=== PATIENT | female | born 1965 | race Hispanic/Latino ===

== ENCOUNTER 2017-07-15 20:36 | Emergency (ER) | payer OTHER ==
[2017-07-15] MEDS ORDERED: HYOSCYAMINE SULFATE 0.125 MG TAB.SUBL SL ONE (21:03)
[2017-07-15 21:11] LABS: APPEARANCE,URINE Clear (CLEAR); BILIRUBIN,URINE Negative (NEGATIVE); COLOR,URINE Yellow (YELLOW); GLUCOSE, URINE (UA) >=1000 mg/dL (NEGATIVE); KETONES,URINE Negative (NEGATIVE); LEUKOCYTE ESTERASE ,URINE Negative (NEGATIVE); NITRATE,URINE Negative (NEGATIVE); OCCULT BLOOD,URINE Negative (NEGATIVE); PROTEIN,URINE Negative (NEGATIVE); UROBILINOGEN,URINE 0.2 mg/dL (0.2-1.0)
[2017-07-15 21:17] LABS: RBC,URINE None Seen /HPF (0-1); WBC,URINE 0-1 /HPF (0-1)
[2017-07-15 21:18] LABS: BACTERIA,URINE Rare /HPF (None Seen); SQUAMOUS EPITHELIAL CELL,UR 0-2 /LPF (0-2)
== END 2017-07-15 22:07 | disposition home or self-care (01) ==
LOC: EDH 20:36
DX: R10.30 Lower abdominal pain, unspecified (principal); M79.1 Myalgia; I10 Essential (primary) hypertension; E11.9 Type 2 diabetes mellitus without complications; Z85.038 Personal history of other malignant neoplasm of large intestine; Z79.4 Long term (current) use of insulin
CPT/HCPCS: 81001

== ENCOUNTER 2019-06-18 17:50 | Emergency (ER) | payer OTHER ==
[2019-06-18] MEDS ORDERED: NA BORATE/BORIC AC/H2O/NACL 120 ML OPHTH IRRIG SOLN ONE (18:25)
[2019-06-18] MEDS ORDERED: TETRACAINE HCL 0.5% 4 ML OPHTH SOLN ONE (18:25)
[2019-06-18] MEDS ORDERED: FLUORESCEIN SODIUM 1 STRIP STRIP ONE (18:25)
[2019-06-18] MEDS ORDERED: ACETAMINOPHEN EXTRA STRENGTH 500 MG TABLET ONE (18:49)
== END 2019-06-18 19:34 | disposition home or self-care (01) ==
LOC: EDH 17:50
DX: S05.01XA Injury of conjunctiva and corneal abrasion without foreign body, right eye, initial encounter (principal); E11.9 Type 2 diabetes mellitus without complications; I10 Essential (primary) hypertension; Z88.6 Allergy status to analgesic agent; Z90.49 Acquired absence of other specified parts of digestive tract; X58.XXXA Exposure to other specified factors, initial encounter; Y93.89 Activity, other specified; Y92.89 Other specified places as the place of occurrence of the external cause; Y99.8 Other external cause status

== ENCOUNTER 2020-04-09 15:49 | Emergency (ER) | payer OTHER ==
[2020-04-09 16:13] LABS: BASOPHILS % (AUTO) 0.5 % (0.0-5.0); EOSINOPHILS % (AUTO) 0.7 % (0.0-8.0); HEMATOCRIT 34.9 % (36-48); LYMPHOCYTES % (AUTO) 23.9 % (21.0-51.0); MEAN CORPUSCULAR HEMOGLOBIN 30.4 pg (27.0-33.0); MEAN CORPUSCULAR HGB CONC 34.7 g/dL (32.0-36.0); MEAN CORPUSCULAR VOLUME 87.7 fL (79-99); MONOCYTES % (AUTO) 6.7 % (3.0-13.0); PLATELET COUNT (AUTO) 487 K/uL (130-400); RED BLOOD CELL COUNT(AUTO) 3.98 MIL/uL (4.00-5.50); RED CELL DISTRIBUTION WIDTH 11.8 % (11.0-15.5); WHITE BLOOD COUNT (AUTO) 8.3 K/uL (4.8-10.8)
[2020-04-09 16:15] LABS: APPEARANCE,URINE Cloudy (CLEAR); BILIRUBIN,URINE Negative (NEGATIVE); COLOR,URINE Yellow (YELLOW); GLUCOSE, URINE (UA) >=1000 mg/dL (NEGATIVE); KETONES,URINE Negative (NEGATIVE); LEUKOCYTE ESTERASE ,URINE Trace (NEGATIVE); NITRATE,URINE Negative (NEGATIVE); OCCULT BLOOD,URINE Negative (NEGATIVE); PROTEIN,URINE 300 mg/dL (NEGATIVE)
[2020-04-09 16:27] LABS: BACTERIA,URINE Many /HPF (None Seen); RBC,URINE None Seen /HPF (0-1)
[2020-04-09 16:31] LABS: ALBUMIN 3.2 g/dL (3.5-5.0); BILIRUBIN,TOTAL 0.3 mg/dL (0.2-1.0); CREATININE 1.1 mg/dL (0.5-1.5); POTASSIUM 4.6 mmol/L (3.5-5.1); TOTAL PROTEIN, SERUM 7.3 g/dL (6.0-8.3)
[2020-04-09] MEDS ORDERED: ONDANSETRON HCL 4 MG/2 ML VIAL ONE (16:46)
[2020-04-09] MEDS ORDERED: SODIUM CHLORIDE 0.9% 500ML 500 ML IV ONE (16:46)
[2020-04-09] MEDS ORDERED: INSULIN HUMULIN R 100 UNIT/ML 3ML ONE (17:54)
[2020-04-09] MEDS ORDERED: HYOSCYAMINE SULFATE 0.125 MG TAB.SUBL SL ONE (19:17)
[2020-04-09] MEDS ORDERED: DOCUSATE SODIUM 100 MG CAP PO ONE (19:17)
== END 2020-04-09 20:39 | disposition home or self-care (01) ==
LOC: EDH 15:49
DX: E11.65 Type 2 diabetes mellitus with hyperglycemia (principal); K59.00 Constipation, unspecified; I10 Essential (primary) hypertension; Z90.49 Acquired absence of other specified parts of digestive tract; Z88.5 Allergy status to narcotic agent
CPT/HCPCS: 36415; 71045; 74176; 80053; 81001; 82150; 82550; 82948; 83690; 84484; 85025; 87088; 93005; 96361; 96374; 96375; 99285; J1815; J2405; J7040

== ENCOUNTER 2021-02-28 20:05 | Emergency (ER) | payer OTHER ==
[~2021-02-28] VITALS: Ht 157.5 cm; Wt 46.3 kg
[2021-02-28 20:07] VITALS: BP 149/81
[2021-02-28 20:55] LABS: BASOPHILS % (AUTO) 0.3 % (0.0-5.0); EOSINOPHILS % (AUTO) 0.5 % (0.0-8.0); HEMATOCRIT 28.6 % (36-48); LYMPHOCYTES % (AUTO) 11.5 % (21.0-51.0); MEAN CORPUSCULAR HEMOGLOBIN 29.5 pg (27.0-33.0); MEAN CORPUSCULAR HGB CONC 32.9 g/dL (32.0-36.0); MEAN CORPUSCULAR VOLUME 89.7 fL (79-99); MONOCYTES % (AUTO) 9.6 % (3.0-13.0); NEUTROPHILS % (AUTO) 77.8 % (40.0-77.0); PLATELET COUNT (AUTO) 652 K/uL (130-400); RED BLOOD CELL COUNT(AUTO) 3.19 MIL/uL (4.00-5.50); RED CELL DISTRIBUTION WIDTH 12.5 % (11.0-15.5); WHITE BLOOD COUNT (AUTO) 9.2 K/uL (4.8-10.8)
[2021-02-28 21:10] LABS: CREATININE 1.1 mg/dL (0.5-1.5); POTASSIUM 4.2 mmol/L (3.5-5.1)
[2021-02-28 21:14] LABS: ALBUMIN 2.8 g/dL (3.5-5.0); BILIRUBIN,TOTAL 0.3 mg/dL (0.2-1.0); TOTAL PROTEIN, SERUM 7.1 g/dL (6.0-8.3)
== END 2021-03-01 02:20 | disposition home or self-care (01) ==
LOC: EDH 20:05
DX: R10.9 Unspecified abdominal pain (principal); R19.7 Diarrhea, unspecified; Z53.21 Procedure and treatment not carried out due to patient leaving prior to being seen by health care provider
CPT/HCPCS: 36415; 80053; 82150; 82550; 83690; 84484; 85025; 93005

== ENCOUNTER 2021-05-25 16:03 | Inpatient (IN) | payer SELFPAY ==
[~2021-05-25] VITALS: Ht 157.5 cm; Wt 48.1 kg
[2021-05-25 17:22] LABS: BASOPHILS % (AUTO) 0.8 % (0.0-5.0); EOSINOPHILS % (AUTO) 1.7 % (0.0-8.0); HEMATOCRIT 30.9 % (36-48); LYMPHOCYTES % (AUTO) 25.9 % (21.0-51.0); MEAN CORPUSCULAR HEMOGLOBIN 28.2 pg (27.0-33.0); MEAN CORPUSCULAR HGB CONC 31.7 g/dL (32.0-36.0); MONOCYTES % (AUTO) 6.5 % (3.0-13.0); NEUTROPHILS % (AUTO) 64.9 % (40.0-77.0); PLATELET COUNT (AUTO) 379 K/uL (130-400); RED BLOOD CELL COUNT(AUTO) 3.47 MIL/uL (4.00-5.50); RED CELL DISTRIBUTION WIDTH 13.2 % (11.0-15.5); WHITE BLOOD COUNT (AUTO) 5.2 K/uL (4.8-10.8)
[2021-05-25] MEDS ORDERED: NITROGLYCERIN 1GM OINT 1 INCH/1GM TD ONE (17:26)
[2021-05-25 17:28] LABS: PROTHROMBIN TIME 10.9 SEC (9.6-11.6)
[2021-05-25 17:29] LABS: PARTIAL THROMBOPLASTIN TIME 26.5 SEC (26.3-35.5)
[2021-05-25 17:30] LABS: CREATININE 1.2 mg/dL (0.5-1.5); POTASSIUM 4.5 mmol/L (3.5-5.1)
[2021-05-25] MEDS ORDERED: NITROGLYCERIN 1GM OINT 1 INCH/1GM TD SCH (17:30)
[2021-05-25 17:39] LABS: ALBUMIN 3.5 g/dL (3.5-5.0); BILIRUBIN,TOTAL 0.6 mg/dL (0.2-1.0); MAGNESIUM 2.4 mg/dL (1.80-2.40); TOTAL PROTEIN, SERUM 7.8 g/dL (6.0-8.3)
[2021-05-25 17:43] LABS: B-TYPE NATRIURETIC PEPTIDE 1110 pg/mL (0-100)
[2021-05-25 17:56] LABS: APPEARANCE,URINE Clear (CLEAR); BILIRUBIN,URINE Negative (NEGATIVE); COLOR,URINE Yellow (YELLOW); GLUCOSE, URINE (UA) >=1000 mg/dL (NEGATIVE); KETONES,URINE Negative (NEGATIVE); LEUKOCYTE ESTERASE ,URINE Negative (NEGATIVE); NITRATE,URINE Negative (NEGATIVE); OCCULT BLOOD,URINE Trace (NEGATIVE); PH,URINE 6.5 (5.0-8.0); PROTEIN,URINE 300 mg/dL (NEGATIVE)
[2021-05-25] MEDS ORDERED: FUROSEMIDE 40MG VIAL IV SCH (19:00)
[2021-05-25 19:26] LABS: BACTERIA,URINE Rare /HPF (None Seen); RBC,URINE 0-1 /HPF (0-1); SQUAMOUS EPITHELIAL CELL,UR Rare /HPF (0-2)
[2021-05-25] MEDS ORDERED: NITROGLYCERIN 0.4 MG SL TAB SL PRN (20:30)
[2021-05-25] MEDS ORDERED: LACTULOSE 20 GM/30 ML UDCUP PO PRN (20:30)
[2021-05-25] MEDS: NITROGLYCERIN 1GM OINT 1 INCH/1GM TD SCH (20:30)
[2021-05-25] MEDS ORDERED: ACETAMINOPHEN WITH CODEINE 1 TAB TAB PO PRN (20:30)
[2021-05-25] MEDS ORDERED: MORPHINE 4 MG SYG IV PRN (20:30)
[2021-05-25] MEDS ORDERED: ACETAMINOPHEN 325 MG TAB PO PRN (20:30)
[2021-05-25] MEDS ORDERED: MAG/ALUM/SIMETH 30 ML UDCUP PO PRN (20:30)
[2021-05-25] MEDS ORDERED: GUAIFENESIN-DM 200/20 MG 10 ML PO PRN (20:30)
[2021-05-25] MEDS: INSULIN HUMULIN R 100 UNIT/ML 3ML SQ SCH (21:00)
[2021-05-25 21:41] LABS: HEMOGLOBIN A1C 7.3 % (4.0-6.0)
[2021-05-25] MEDS: FUROSEMIDE 40MG VIAL IV SCH (21:45)
[2021-05-25] MEDS ORDERED: NITR0.4T SL (22:03)
[2021-05-25] MEDS ORDERED: AEC81 PO (22:03)
[2021-05-25] MEDS ORDERED: PANT40TA PO (22:03)
[2021-05-25] MEDS ORDERED: CLOP75TA14 PO (22:03)
[2021-05-25] MEDS ORDERED: LISI20TA24 PO (22:03)
[2021-05-25] MEDS ORDERED: ATOR80TA PO (22:03)
[2021-05-25] MEDS ORDERED: FURO20TA6 PO (22:03)
[2021-05-25] MEDS ORDERED: METF-526 PO (22:03)
[2021-05-25] MEDS ORDERED: TICA90TA PO (22:03)
[2021-05-25] MEDS ORDERED: INVOK100TB PO (22:03)
[2021-05-25] MEDS ORDERED: FERR325T29 PO (22:03)
[2021-05-25] MEDS ORDERED: METO100T14 PO (22:03)
[2021-05-25] MEDS: FAMOTIDINE 20MG VIAL IV SCH (22:10)
[2021-05-25] MEDS ORDERED: KETOROLAC 15MG/ML VIAL (15MG/ML) IV ONE (22:30)
[2021-05-25] MEDS ORDERED: LABETALOL 20MG VIAL IV ONE (22:30)
[2021-05-26] MEDS: NITROGLYCERIN 1GM OINT 1 INCH/1GM TD SCH ×4 (05:43→23:04)
[2021-05-26 06:58] LABS: CREATININE 1.2 mg/dL (0.5-1.5); POTASSIUM 3.9 mmol/L (3.5-5.1)
[2021-05-26] MEDS: INSULIN HUMULIN R 100 UNIT/ML 3ML SQ SCH ×4 (07:30→21:00)
[2021-05-26] MEDS: FUROSEMIDE 40MG VIAL IV SCH ×2 (09:24→21:03)
[2021-05-26] MEDS: LISINOPRIL 10 MG TABLET PO SCH (09:24)
[2021-05-26] MEDS: FAMOTIDINE 20MG VIAL IV SCH (09:24)
[2021-05-26] MEDS: METOPROLOL TARTRATE 50 MG TAB PO SCH ×2 (09:24→21:03)
[2021-05-26] MEDS: ASPIRIN 81 MG EC TAB PO SCH (09:24)
[2021-05-26 09:25] LABS: BASOPHILS % (AUTO) 0.9 % (0.0-5.0); EOSINOPHILS % (AUTO) 2.2 % (0.0-8.0); HEMATOCRIT 26.5 % (36-48); LYMPHOCYTES % (AUTO) 30.9 % (21.0-51.0); MEAN CORPUSCULAR HEMOGLOBIN 28.2 pg (27.0-33.0); MEAN CORPUSCULAR HGB CONC 31.7 g/dL (32.0-36.0); MEAN CORPUSCULAR VOLUME 88.9 fL (79-99); MONOCYTES % (AUTO) 7.3 % (3.0-13.0); NEUTROPHILS % (AUTO) 58.3 % (40.0-77.0); PLATELET COUNT (AUTO) 356 K/uL (130-400); RED BLOOD CELL COUNT(AUTO) 2.98 MIL/uL (4.00-5.50); RED CELL DISTRIBUTION WIDTH 13.1 % (11.0-15.5); WHITE BLOOD COUNT (AUTO) 4.6 K/uL (4.8-10.8)
[2021-05-26] MEDS: ENOXAPARIN SODIUM 30 MG/0.3 ML SQ SCH (09:25)
[2021-05-26 09:50] LABS: B-TYPE NATRIURETIC PEPTIDE 1020 pg/mL (0-100)
[2021-05-26 20:30] VITALS: BP 155/94
[2021-05-26] MEDS: ATORVASTATIN 20 MG TABLET PO SCH (21:03)
[2021-05-27] VITALS: BP 159/97
[2021-05-27 04:00] VITALS: BP 139/65
[2021-05-27 04:49] LABS: BASOPHILS % (AUTO) 0.6 % (0.0-5.0); EOSINOPHILS % (AUTO) 3.2 % (0.0-8.0); HEMATOCRIT 25.1 % (36-48); LYMPHOCYTES % (AUTO) 28.3 % (21.0-51.0); MEAN CORPUSCULAR HEMOGLOBIN 28.4 pg (27.0-33.0); MEAN CORPUSCULAR HGB CONC 32.3 g/dL (32.0-36.0); MEAN CORPUSCULAR VOLUME 88.1 fL (79-99); MONOCYTES % (AUTO) 8.6 % (3.0-13.0); NEUTROPHILS % (AUTO) 59.1 % (40.0-77.0); PLATELET COUNT (AUTO) 337 K/uL (130-400); RED BLOOD CELL COUNT(AUTO) 2.85 MIL/uL (4.00-5.50); WHITE BLOOD COUNT (AUTO) 5.4 K/uL (4.8-10.8)
[2021-05-27 05:08] LABS: BILIRUBIN,TOTAL 0.5 mg/dL (0.2-1.0); CREATININE 1.3 mg/dL (0.5-1.5); TOTAL PROTEIN, SERUM 6.6 g/dL (6.0-8.3)
[2021-05-27] MEDS: INSULIN HUMULIN R 100 UNIT/ML 3ML SQ SCH ×4 (05:47→20:42)
[2021-05-27] MEDS: NITROGLYCERIN 1GM OINT 1 INCH/1GM TD SCH ×3 (06:13→22:36)
[2021-05-27 07:35] VITALS: BP 163/94
[2021-05-27] MEDS: FUROSEMIDE 40MG VIAL IV SCH ×2 (09:11→20:34)
[2021-05-27] MEDS: ASPIRIN 81 MG EC TAB PO SCH (09:11)
[2021-05-27] MEDS: LISINOPRIL 10 MG TABLET PO SCH ×2 (09:11→20:34)
[2021-05-27] MEDS: ENOXAPARIN SODIUM 30 MG/0.3 ML SQ SCH (09:11)
[2021-05-27] MEDS: METOPROLOL TARTRATE 50 MG TAB PO SCH (09:11)
[2021-05-27] MEDS: FAMOTIDINE 20MG VIAL IV SCH (09:12)
[2021-05-27 11:30] VITALS: BP 134/55
[2021-05-27] MEDS ORDERED: DiphenhydrAMINE HCL 50 MG/ML VIAL IVP PRN (14:00)
[2021-05-27 15:30] VITALS: BP 157/86
[2021-05-27 20:00] VITALS: BP 159/90
[2021-05-27] MEDS: CARVEDILOL 25 MG TABLET PO SCH (20:34)
[2021-05-27] MEDS: ATORVASTATIN 20 MG TABLET PO SCH (20:34)
[2021-05-27] MEDS: ACETAMINOPHEN 325 MG TAB PO PRN (22:37)
[2021-05-27] MEDS: ACETAMINOPHEN WITH CODEINE 1 TAB TAB PO PRN (23:31)
[2021-05-28] VITALS: BP 154/74
[2021-05-28 03:53] VITALS: BP 102/50
[2021-05-28 05:20] LABS: HEMATOCRIT 25.3 % (36-48); MEAN CORPUSCULAR HEMOGLOBIN 28.5 pg (27.0-33.0); MEAN CORPUSCULAR HGB CONC 32.8 g/dL (32.0-36.0); MEAN CORPUSCULAR VOLUME 86.9 fL (79-99); RED BLOOD CELL COUNT(AUTO) 2.91 MIL/uL (4.00-5.50); WHITE BLOOD COUNT (AUTO) 4.7 K/uL (4.8-10.8)
[2021-05-28 05:39] LABS: CREATININE 1.5 mg/dL (0.5-1.5); POTASSIUM 4.1 mmol/L (3.5-5.1)
[2021-05-28] MEDS: NITROGLYCERIN 1GM OINT 1 INCH/1GM TD SCH ×2 (06:22→16:28)
[2021-05-28] MEDS: INSULIN HUMULIN R 100 UNIT/ML 3ML SQ SCH ×4 (06:22→21:00)
[2021-05-28] MEDS: ONDANSETRON 4MG INJ IV PRN ×2 (09:12→17:36)
[2021-05-28] MEDS: LISINOPRIL 10 MG TABLET PO SCH ×2 (09:16→21:51)
[2021-05-28] MEDS: ASPIRIN 81 MG EC TAB PO SCH (09:16)
[2021-05-28] MEDS: FAMOTIDINE 20MG VIAL IV SCH (09:16)
[2021-05-28] MEDS: CARVEDILOL 25 MG TABLET PO SCH ×2 (09:17→21:51)
[2021-05-28] MEDS: ENOXAPARIN SODIUM 30 MG/0.3 ML SQ SCH (09:17)
[2021-05-28] MEDS: FUROSEMIDE 40MG VIAL IV SCH (09:17)
[2021-05-28 09:28] VITALS: BP 170/96
[2021-05-28 11:55] VITALS: BP 162/94
[2021-05-28 16:52] VITALS: BP 159/86
[2021-05-28] MEDS: MECLIZINE HCL 12.5 MG TABLET PO PRN (19:25)
[2021-05-28 20:00] VITALS: BP 136/74
[2021-05-28] MEDS: ATORVASTATIN 20 MG TABLET PO SCH (21:52)
[2021-05-29] VITALS (7 sets, daily range): BP systolic 116–139; BP diastolic 49–73
[2021-05-29 05:40] LABS: HEMATOCRIT 26.8 % (36-48); MEAN CORPUSCULAR HEMOGLOBIN 28.5 pg (27.0-33.0); MEAN CORPUSCULAR HGB CONC 32.1 g/dL (32.0-36.0); MEAN CORPUSCULAR VOLUME 88.7 fL (79-99); RED BLOOD CELL COUNT(AUTO) 3.02 MIL/uL (4.00-5.50); RED CELL DISTRIBUTION WIDTH 12.8 % (11.0-15.5); WHITE BLOOD COUNT (AUTO) 5.4 K/uL (4.8-10.8)
[2021-05-29 05:52] LABS: CREATININE 1.3 mg/dL (0.5-1.5); POTASSIUM 4.1 mmol/L (3.5-5.1)
[2021-05-29 06:00] LABS: INR 1.01 (0.85-1.15)
[2021-05-29 06:02] LABS: PARTIAL THROMBOPLASTIN TIME 26.7 SEC (26.3-35.5)
[2021-05-29] MEDS: INSULIN HUMULIN R 100 UNIT/ML 3ML SQ SCH ×3 (06:42→20:19)
[2021-05-29] MEDS: NITROGLYCERIN 1GM OINT 1 INCH/1GM TD SCH ×2 (07:38→15:22)
[2021-05-29] MEDS: FUROSEMIDE 40MG VIAL IV SCH (10:09)
[2021-05-29] MEDS: CARVEDILOL 25 MG TABLET PO SCH ×2 (10:09→20:18)
[2021-05-29] MEDS: FAMOTIDINE 20MG VIAL IV SCH (10:09)
[2021-05-29] MEDS: LISINOPRIL 10 MG TABLET PO SCH ×2 (10:09→20:19)
[2021-05-29] MEDS: ASPIRIN 81 MG EC TAB PO SCH (10:09)
[2021-05-29] MEDS: ENOXAPARIN SODIUM 30 MG/0.3 ML SQ SCH (10:10)
[2021-05-29] MEDS: MECLIZINE HCL 12.5 MG TABLET PO PRN (12:49)
[2021-05-29] MEDS: ATORVASTATIN 20 MG TABLET PO SCH (20:19)
[2021-05-30] VITALS (12 sets, daily range): BP systolic 119–160; BP diastolic 41–82
[2021-05-30] MEDS: NITROGLYCERIN 1GM OINT 1 INCH/1GM TD SCH ×3 (00:01→15:45)
[2021-05-30 05:04] LABS: MEAN CORPUSCULAR HGB CONC 32.1 g/dL (32.0-36.0); RED BLOOD CELL COUNT(AUTO) 3.22 MIL/uL (4.00-5.50); RED CELL DISTRIBUTION WIDTH 12.6 % (11.0-15.5); WHITE BLOOD COUNT (AUTO) 5.1 K/uL (4.8-10.8)
[2021-05-30 05:18] LABS: CREATININE 1.4 mg/dL (0.5-1.5); POTASSIUM 3.9 mmol/L (3.5-5.1)
[2021-05-30 05:21] LABS: INR 1.01 (0.85-1.15)
[2021-05-30 05:22] LABS: PARTIAL THROMBOPLASTIN TIME 27.6 SEC (26.3-35.5)
[2021-05-30] MEDS: INSULIN HUMULIN R 100 UNIT/ML 3ML SQ SCH ×4 (05:44→21:45)
[2021-05-30] MEDS ORDERED: BIVALIRUDIN 250 MG/VIAL IV ONE (07:13)
[2021-05-30] MEDS ORDERED: HEPARIN 10,000 UNIT/10ML (1,000 UNIT/ML) VIAL ONE (07:14)
[2021-05-30] MEDS ORDERED: IOHEXOL 350 MG/ML 100ML INFUS..BTL IV ONE (07:14)
[2021-05-30] MEDS ORDERED: NITROGLYCERIN 50MG VIAL IV ONE (07:14)
[2021-05-30] MEDS ORDERED: LIDOCAINE HCL 400MG/20ML VIAL ONE (07:14)
[2021-05-30] MEDS ORDERED: IOHEXOL-350 50ML VIAL IV ONE (07:14)
[2021-05-30] MEDS ORDERED: FENTANYL CITRATE PF 50 MCG/1 ML 2ML VIAL ONE (07:41)
[2021-05-30] MEDS ORDERED: MIDAZOLAM HCL 1 MG/ML 2ML VIAL ONE (07:41)
[2021-05-30] MEDS ORDERED: HEPARIN 1,000 UNIT VIAL ONE (07:56)
[2021-05-30] MEDS: SPIRONOLACTONE 25 MG TAB PO SCH (09:00)
[2021-05-30] MEDS: ASPIRIN 81 MG EC TAB PO SCH (09:00)
[2021-05-30] MEDS: FUROSEMIDE 40MG VIAL IV SCH (09:00)
[2021-05-30] MEDS: FAMOTIDINE 20MG VIAL IV SCH (09:00)
[2021-05-30] MEDS: LISINOPRIL 10 MG TABLET PO SCH ×3 (09:00→21:31)
[2021-05-30] MEDS: CARVEDILOL 25 MG TABLET PO SCH ×3 (09:00→21:32)
[2021-05-30] MEDS: ATORVASTATIN 20 MG TABLET PO SCH ×2 (21:21→21:31)
[2021-05-31] MEDS: NITROGLYCERIN 1GM OINT 1 INCH/1GM TD SCH ×3 (01:33→14:32)
[2021-05-31] MEDS: ACETAMINOPHEN WITH CODEINE 1 TAB TAB PO PRN (01:40)
[2021-05-31] MEDS: ACETAMINOPHEN 325 MG TAB PO PRN (01:44)
[2021-05-31 04:00] VITALS: BP 111/58
[2021-05-31 05:26] LABS: HEMATOCRIT 27.7 % (36-48); MEAN CORPUSCULAR HEMOGLOBIN 27.8 pg (27.0-33.0); MEAN CORPUSCULAR HGB CONC 31.8 g/dL (32.0-36.0); MEAN CORPUSCULAR VOLUME 87.7 fL (79-99); RED BLOOD CELL COUNT(AUTO) 3.16 MIL/uL (4.00-5.50); RED CELL DISTRIBUTION WIDTH 12.6 % (11.0-15.5); WHITE BLOOD COUNT (AUTO) 5.7 K/uL (4.8-10.8)
[2021-05-31 05:40] LABS: CREATININE 1.5 mg/dL (0.5-1.5); POTASSIUM 4.3 mmol/L (3.5-5.1)
[2021-05-31] MEDS: INSULIN HUMULIN R 100 UNIT/ML 3ML SQ SCH ×3 (06:29→16:10)
[2021-05-31 07:30] VITALS: BP 135/69
[2021-05-31] MEDS: CARVEDILOL 25 MG TABLET PO SCH (08:55)
[2021-05-31] MEDS: ASPIRIN 81 MG EC TAB PO SCH (08:55)
[2021-05-31] MEDS: SPIRONOLACTONE 25 MG TAB PO SCH (08:55)
[2021-05-31] MEDS: LISINOPRIL 10 MG TABLET PO SCH (08:55)
[2021-05-31] MEDS: FUROSEMIDE 40MG VIAL IV SCH (08:56)
[2021-05-31] MEDS: FAMOTIDINE 20MG VIAL IV SCH (08:56)
[2021-05-31 11:00] VITALS: BP 125/67
[2021-05-31 16:00] VITALS: BP 131/74
[2021-05-31] MEDS ORDERED: LISI10TA24 PO (16:26)
[2021-05-31] MEDS ORDERED: FURO40TA7 PO (16:26)
[2021-05-31] MEDS ORDERED: SPIR25TA6 PO (16:26)
[2021-05-31] MEDS ORDERED: CARV25TA77 PO (16:26)
== END 2021-05-31 17:31 | disposition home or self-care (01) | DRG 286 ==
LOC: EDH 16:03 → EDHIP 16:04 → UNDOADMIN 21:41 → 3DH 05-26 20:29
PROVIDERS: ADMIT Hospitalist; ATTEND Hospitalist
PROC: 4A023N7 Measurement of Cardiac Sampling and Pressure, Left Heart, Percutaneous Approach (ICD-10-PCS; principal; 2021-05-30)
PROC: B2111ZZ Fluoroscopy of Multiple Coronary Arteries using Low Osmolar Contrast (ICD-10-PCS; 2021-05-30)
PROC: B2151ZZ Fluoroscopy of Left Heart using Low Osmolar Contrast (ICD-10-PCS; 2021-05-30)
DX: I11.0 Hypertensive heart disease with heart failure (principal); I50.43 Acute on chronic combined systolic (congestive) and diastolic (congestive) heart failure; E78.5 Hyperlipidemia, unspecified; E11.9 Type 2 diabetes mellitus without complications; I25.10 Atherosclerotic heart disease of native coronary artery without angina pectoris; Z20.822 Contact with and (suspected) exposure to COVID-19; E78.00 Pure hypercholesterolemia, unspecified; I25.82 Chronic total occlusion of coronary artery; I25.2 Old myocardial infarction; Z88.5 Allergy status to narcotic agent; Z95.5 Presence of coronary angioplasty implant and graft; Z85.038 Personal history of other malignant neoplasm of large intestine; Z83.3 Family history of diabetes mellitus; Z82.49 Family history of ischemic heart disease and other diseases of the circulatory system
CPT/HCPCS: 36415; 71045; 71046; 78582; 80048; 80053; 80061; 81001; 82550; 82948; 83036; 83605; 83735; 83880; 84484; 85025; 85027; 85378; 85610; 85730; 87040; 87635; 93005; 93306; 93458; 93971; 99156; 99157; A9540; A9558; C1894; C9803; G0378; J0583; J1200; J1644; J1650; J1815; J1885; J1940; J2250; J2405; J3010; J3490; Q9967

== ENCOUNTER 2021-06-10 23:41 | Inpatient (IN) | payer SELFPAY ==
[~2021-06-10] VITALS: Ht 157.5 cm; Wt 54.0 kg
[~2021-06-10 23:41] MED LIST: AEC81 PO; ATOR80TA PO; CARV25TA77 PO; FERR325T29 PO; FURO40TA7 PO; INVOK100TB PO; LISI10TA24 PO; METF-526 PO; NITR0.4T SL; PANT40TA PO; SPIR25TA6 PO; TICA90TA PO
[2021-06-11] MEDS ORDERED: FUROSEMIDE 40MG VIAL IV ONE (00:30)
[2021-06-11] MEDS ORDERED: NITROGLYCERIN 1GM OINT 1 INCH/1GM TD ONE ×2 (00:30→00:42)
[2021-06-11] MEDS ORDERED: FUROSEMIDE 40MG VIAL ONE (00:42)
[2021-06-11 00:48] LABS: APPEARANCE,URINE Clear (CLEAR); BILIRUBIN,URINE Negative (NEGATIVE); COLOR,URINE Yellow (YELLOW); GLUCOSE, URINE (UA) >=1000 mg/dL (NEGATIVE); KETONES,URINE Negative (NEGATIVE); LEUKOCYTE ESTERASE ,URINE Trace (NEGATIVE); NITRATE,URINE Negative (NEGATIVE); OCCULT BLOOD,URINE Trace (NEGATIVE); PH,URINE 5.5 (5.0-8.0); PROTEIN,URINE >=1000 mg/dL (NEGATIVE)
[2021-06-11 00:56] LABS: BACTERIA,URINE None Seen /HPF (None Seen); HYALINE CASTS, URINE 0-1 /LPF (0-1 /LPF); MUCUS,URINE Rare LPF (None Seen); RBC,URINE 0-1 /HPF (0-1); SQUAMOUS EPITHELIAL CELL,UR Few /HPF (0-2); YEAST,URINE BUDDING None Seen /HPF (None Seen)
[2021-06-11 00:57] LABS: POTASSIUM 5.2 mmol/L (3.5-5.1)
[2021-06-11 01:01] LABS: ALBUMIN 3.4 g/dL (3.5-5.0); BILIRUBIN,TOTAL 0.5 mg/dL (0.2-1.0); TOTAL PROTEIN, SERUM 7.5 g/dL (6.0-8.3)
[2021-06-11 01:04] LABS: BASOPHILS % (AUTO) 1.1 % (0.0-5.0); HEMATOCRIT 26.3 % (36-48); LYMPHOCYTES % (AUTO) 25.2 % (21.0-51.0); MEAN CORPUSCULAR HEMOGLOBIN 27.8 pg (27.0-33.0); MEAN CORPUSCULAR HGB CONC 32.7 g/dL (32.0-36.0); MEAN CORPUSCULAR VOLUME 85.1 fL (79-99); MONOCYTES % (AUTO) 7.3 % (3.0-13.0); NEUTROPHILS % (AUTO) 64.2 % (40.0-77.0); PLATELET COUNT (AUTO) 432 K/uL (130-400); RED BLOOD CELL COUNT(AUTO) 3.09 MIL/uL (4.00-5.50); RED CELL DISTRIBUTION WIDTH 12.9 % (11.0-15.5); WHITE BLOOD COUNT (AUTO) 5.5 K/uL (4.8-10.8)
[2021-06-11 01:05] LABS: B-TYPE NATRIURETIC PEPTIDE 1020 pg/mL (0-100)
[2021-06-11] MEDS ORDERED: DEXTROSE 50%-WATER 50 ML DISP.SYRIN IV PRN (02:30)
[2021-06-11] MEDS ORDERED: NITROGLYCERIN 0.4 MG SL TAB SL PRN (02:30)
[2021-06-11] MEDS ORDERED: GLUCAGON 1MG KIT 1 MG ML IM PRN (02:30)
[2021-06-11] MEDS ORDERED: ACETAMINOPHEN 325 MG TAB PO PRN ×2 (02:30)
[2021-06-11 02:37] LABS: HEMOGLOBIN A1C 7.8 % (4.0-6.0)
[2021-06-11 02:52] LABS: % IRON SATURATION 17.1 % (22-44)
[2021-06-11 03:10] LABS: INR 1.01 (0.85-1.15)
[2021-06-11 03:11] LABS: PARTIAL THROMBOPLASTIN TIME 26.7 SEC (26.3-35.5)
[2021-06-11 03:14] LABS: POTASSIUM 4.1 mmol/L (3.5-5.1)
[2021-06-11] MEDS: INSULIN HUMULIN R 100 UNIT/ML 3ML SQ SCH ×4 (07:30→21:00)
[2021-06-11] MEDS ORDERED: FUROSEMIDE 40MG VIAL IVP SCH (08:00)
[2021-06-11] MEDS: ATORVASTATIN 40 MG TABLET PO SCH ×2 (09:00→21:24)
[2021-06-11] MEDS ORDERED: COMPOUND IV MISC 1 EACH IVSOLN MISC PRN (09:00)
[2021-06-11] MEDS: CARVEDILOL 25 MG TABLET PO SCH ×2 (09:29→21:24)
[2021-06-11] MEDS: SPIRONOLACTONE 25 MG TAB PO SCH (09:29)
[2021-06-11] MEDS: FAMOTIDINE 20MG TAB PO SCH ×2 (09:29→21:24)
[2021-06-11] MEDS: TICAGRELOR 90 MG TABLET PO SCH ×2 (09:29→21:24)
[2021-06-11] MEDS: ASPIRIN 81 MG EC TAB PO SCH (09:29)
[2021-06-11] MEDS: NON-FORMULARY MEDICATION 1 EACH (Metformin HCl (Metformin HCl ER) 500 MG) PO SCH ×2 (09:29→16:19)
[2021-06-11] MEDS: FERROUS SULFATE 325 MG TABLET.DR PO SCH (09:29)
[2021-06-11] MEDS: LISINOPRIL 10 MG TABLET PO SCH (09:30)
[2021-06-11] MEDS: ENOXAPARIN SODIUM 30 MG/0.3 ML SQ SCH (09:30)
[2021-06-11] MEDS: IRON SUCROSE COMPLEX 300 MG in 0.9%NACL 50ML 50 ML IV SCH (10:15)
[2021-06-11] MEDS: FUROSEMIDE 40MG VIAL IVP SCH ×2 (13:57→22:45)
[2021-06-11] MEDS: ONDANSETRON 4MG INJ IV PRN (14:02)
[2021-06-11] MEDS ORDERED: NOREPINEPHRIN 4MG/NS 250ML 0 ML IV ONE (21:06)
[2021-06-12] VITALS (7 sets, daily range): BP systolic 114–165; BP diastolic 60–96
[2021-06-12 06:19] LABS: BASOPHILS % (AUTO) 0.8 % (0.0-5.0); EOSINOPHILS % (AUTO) 2.1 % (0.0-8.0); HEMATOCRIT 26.8 % (36-48); LYMPHOCYTES % (AUTO) 27.4 % (21.0-51.0); MEAN CORPUSCULAR HGB CONC 31.7 g/dL (32.0-36.0); MEAN CORPUSCULAR VOLUME 88.2 fL (79-99); MONOCYTES % (AUTO) 8.4 % (3.0-13.0); NEUTROPHILS % (AUTO) 61.1 % (40.0-77.0); PLATELET COUNT (AUTO) 378 K/uL (130-400); RED BLOOD CELL COUNT(AUTO) 3.04 MIL/uL (4.00-5.50); WHITE BLOOD COUNT (AUTO) 5.3 K/uL (4.8-10.8)
[2021-06-12] MEDS: INSULIN HUMULIN R 100 UNIT/ML 3ML SQ SCH ×4 (06:37→21:42)
[2021-06-12 07:14] LABS: BILIRUBIN,TOTAL 0.5 mg/dL (0.2-1.0); CREATININE 1.4 mg/dL (0.5-1.5); POTASSIUM 3.9 mmol/L (3.5-5.1); TOTAL PROTEIN, SERUM 6.7 g/dL (6.0-8.3)
[2021-06-12] MEDS: FUROSEMIDE 40MG VIAL IVP SCH ×2 (07:56→17:39)
[2021-06-12] MEDS: NON-FORMULARY MEDICATION 1 EACH (Metformin HCl (Metformin HCl ER) 500 MG) PO SCH ×2 (08:00→17:00)
[2021-06-12] MEDS: FAMOTIDINE 20MG TAB PO SCH (09:50)
[2021-06-12] MEDS: TICAGRELOR 90 MG TABLET PO SCH ×2 (09:50→21:29)
[2021-06-12] MEDS: ENOXAPARIN SODIUM 30 MG/0.3 ML SQ SCH (09:50)
[2021-06-12] MEDS: SPIRONOLACTONE 25 MG TAB PO SCH (09:51)
[2021-06-12] MEDS: LISINOPRIL 10 MG TABLET PO SCH (09:51)
[2021-06-12] MEDS: ASPIRIN 81 MG EC TAB PO SCH (09:51)
[2021-06-12] MEDS: CARVEDILOL 25 MG TABLET PO SCH ×2 (09:51→21:29)
[2021-06-12] MEDS: IRON SUCROSE COMPLEX 300 MG in 0.9%NACL 50ML 50 ML IV SCH (09:58)
[2021-06-12] MEDS: ONDANSETRON 4MG INJ IV PRN ×2 (12:48→23:45)
[2021-06-12] MEDS ORDERED: PANTOPRAZOLE 40 MG TAB DR PO SCH (14:00)
[2021-06-12] MEDS ORDERED: PHARMACY COMMUNICATION MISC SCH (14:00)
[2021-06-12] MEDS ORDERED: GI COCKTAIL PO PRN ×3 (14:30)
[2021-06-12] MEDS ORDERED: COMPOUND PO MISCELLANEOUS 1 EACH MISC MISC PRN (14:30)
[2021-06-12] MEDS ORDERED: POLYETHYLENE GLYCOL 3350 17 GM POWD.PACK PO ONE (18:00)
[2021-06-12] MEDS ORDERED: LACTULOSE 20 GM/30 ML UDCUP PO ONE (18:00)
[2021-06-12] MEDS ORDERED: DOCUSATE SODIUM 100 MG CAP PO SCH (18:00)
[2021-06-12] MEDS: ATORVASTATIN 40 MG TABLET PO SCH (21:28)
[2021-06-13 03:49] VITALS: BP 139/77
[2021-06-13] MEDS: FUROSEMIDE 40MG VIAL IVP SCH (05:42)
[2021-06-13] MEDS: INSULIN HUMULIN R 100 UNIT/ML 3ML SQ SCH ×3 (05:50→16:30)
[2021-06-13 07:30] VITALS: BP 133/70
[2021-06-13] MEDS: NON-FORMULARY MEDICATION 1 EACH (Metformin HCl (Metformin HCl ER) 500 MG) PO SCH ×2 (08:00→17:00)
[2021-06-13] MEDS: ASPIRIN 81 MG EC TAB PO SCH (08:59)
[2021-06-13] MEDS: SPIRONOLACTONE 25 MG TAB PO SCH (08:59)
[2021-06-13] MEDS: LISINOPRIL 10 MG TABLET PO SCH (08:59)
[2021-06-13] MEDS: FERROUS SULFATE 325 MG TABLET.DR PO SCH (08:59)
[2021-06-13] MEDS: TICAGRELOR 90 MG TABLET PO SCH (09:00)
[2021-06-13] MEDS: CARVEDILOL 25 MG TABLET PO SCH (09:00)
[2021-06-13] MEDS ORDERED: PANTOPRAZOLE 40 MG TAB DR PO SCH (09:00)
[2021-06-13] MEDS: ENOXAPARIN SODIUM 30 MG/0.3 ML SQ SCH (09:01)
[2021-06-13] MEDS: IRON SUCROSE COMPLEX 300 MG in 0.9%NACL 50ML 50 ML IV SCH (10:15)
[2021-06-13] MEDS: ONDANSETRON 4MG INJ IV PRN (10:15)
[2021-06-13 11:00] VITALS: BP 165/78
[2021-06-13 12:24] LABS: BASOPHILS % (AUTO) 0.7 % (0.0-5.0); EOSINOPHILS % (AUTO) 11.2 % (0.0-8.0); HEMATOCRIT 29.4 % (36-48); LYMPHOCYTES % (AUTO) 17.4 % (21.0-51.0); MEAN CORPUSCULAR HEMOGLOBIN 28.5 pg (27.0-33.0); MEAN CORPUSCULAR HGB CONC 32.7 g/dL (32.0-36.0); MEAN CORPUSCULAR VOLUME 87.2 fL (79-99); MONOCYTES % (AUTO) 6.3 % (3.0-13.0); PLATELET COUNT (AUTO) 391 K/uL (130-400); RED BLOOD CELL COUNT(AUTO) 3.37 MIL/uL (4.00-5.50); RED CELL DISTRIBUTION WIDTH 12.8 % (11.0-15.5); WHITE BLOOD COUNT (AUTO) 5.7 K/uL (4.8-10.8)
[2021-06-13 12:43] LABS: B-TYPE NATRIURETIC PEPTIDE 755 pg/mL (0-100)
[2021-06-13 12:45] LABS: ALBUMIN 3.5 g/dL (3.5-5.0); BILIRUBIN,TOTAL 0.7 mg/dL (0.2-1.0); CREATININE 1.7 mg/dL (0.5-1.5); MAGNESIUM 1.9 mg/dL (1.80-2.40); PHOSPHORUS 4.6 mg/dL (2.5-4.9); POTASSIUM 4.3 mmol/L (3.5-5.1); TOTAL PROTEIN, SERUM 7.7 g/dL (6.0-8.3)
[2021-06-13 16:00] VITALS: BP 145/86
[2021-06-13] MEDS ORDERED: AEC81 PO (19:44)
[2021-06-13] MEDS ORDERED: CARV25TA77 PO (19:44)
[2021-06-13] MEDS ORDERED: FERR325T29 PO (19:44)
[2021-06-13] MEDS ORDERED: TICA90TA PO (19:44)
[2021-06-13] MEDS ORDERED: SPIR25TA6 PO (19:44)
[2021-06-13] MEDS ORDERED: EMPA10TA PO (19:44)
[2021-06-13] MEDS ORDERED: ATOR80TA PO (19:44)
[2021-06-13] MEDS ORDERED: LISI10TA24 PO (19:44)
[2021-06-13] MEDS ORDERED: FURO40TA7 PO (19:44)
[2021-06-13] MEDS ORDERED: EPOETIN ALFA-EPBX (NON-ESRD) 10,000 UNIT/ML VIAL SQ SCH (21:00)
== END 2021-06-13 20:36 | disposition home or self-care (01) | DRG 291 ==
LOC: EDH 23:41 → EDHIP 23:42 → 3CH 06-11 22:51 → 4BH 06-12 20:02
PROVIDERS: ADMIT Internal Medicine; ATTEND Internal Medicine
DX: I11.0 Hypertensive heart disease with heart failure (principal); I50.43 Acute on chronic combined systolic (congestive) and diastolic (congestive) heart failure; E87.5 Hyperkalemia; D50.9 Iron deficiency anemia, unspecified; R09.02 Hypoxemia; M79.89 Other specified soft tissue disorders; Z20.822 Contact with and (suspected) exposure to COVID-19; E78.5 Hyperlipidemia, unspecified; I25.10 Atherosclerotic heart disease of native coronary artery without angina pectoris; R09.89 Other specified symptoms and signs involving the circulatory and respiratory systems; E11.9 Type 2 diabetes mellitus without complications; Z88.5 Allergy status to narcotic agent; Z79.02 Long term (current) use of antithrombotics/antiplatelets; Z79.82 Long term (current) use of aspirin; Z79.84 Long term (current) use of oral hypoglycemic drugs; Z79.899 Other long term (current) drug therapy; Z95.5 Presence of coronary angioplasty implant and graft; Z85.038 Personal history of other malignant neoplasm of large intestine; Z91.19 Patient's noncompliance with other medical treatment and regimen; Z83.3 Family history of diabetes mellitus; Z82.49 Family history of ischemic heart disease and other diseases of the circulatory system
CPT/HCPCS: 36415; 71045; 74018; 80053; 81001; 82550; 82728; 82948; 83036; 83540; 83550; 83735; 83874; 83880; 84100; 84132; 84145; 84484; 85025; 85610; 85730; 87635; 93005; 93971; 99291; G0378; J1650; J1756; J1815; J1940; J2405; J3490

== ENCOUNTER 2021-10-01 03:54 | Inpatient (IN) | payer OTHER ==
[~2021-10-01] VITALS: Ht 157.5 cm; Wt 55.4 kg
[~2021-10-01 03:54] MED LIST changes: +EMPA10TA PO; -INVOK100TB PO
[2021-10-01 04:33] LABS: BASOPHILS % (AUTO) 0.9 % (0.0-5.0); HEMATOCRIT 35.3 % (36-48); LYMPHOCYTES % (AUTO) 19.4 % (21.0-51.0); MEAN CORPUSCULAR HEMOGLOBIN 26.7 pg (27.0-33.0); MEAN CORPUSCULAR HGB CONC 30.9 g/dL (32.0-36.0); MEAN CORPUSCULAR VOLUME 86.5 fL (79-99); MONOCYTES % (AUTO) 7.7 % (3.0-13.0); NEUTROPHILS % (AUTO) 68.8 % (40.0-77.0); PLATELET COUNT (AUTO) 325 K/uL (130-400); RED BLOOD CELL COUNT(AUTO) 4.08 MIL/uL (4.00-5.50); RED CELL DISTRIBUTION WIDTH 15.3 % (11.0-15.5); WHITE BLOOD COUNT (AUTO) 4.7 K/uL (4.8-10.8)
[2021-10-01 04:38] LABS: POTASSIUM 5.2 mmol/L (3.5-5.1)
[2021-10-01 04:43] LABS: ALBUMIN 2.6 g/dL (3.5-5.0); BILIRUBIN,TOTAL 0.5 mg/dL (0.2-1.0); TOTAL PROTEIN, SERUM 6.8 g/dL (6.0-8.3)
[2021-10-01 04:53] LABS: B-TYPE NATRIURETIC PEPTIDE 2130 pg/mL (0-100)
[2021-10-01] MEDS ORDERED: FUROSEMIDE 40MG VIAL IV ONE (05:00)
[2021-10-01] MEDS ORDERED: ASPIRIN 325MG EC TAB PO SCH (07:30)
[2021-10-01] MEDS ORDERED: SITA1TAB6 PO (07:54)
[2021-10-01] MEDS ORDERED: FURO40TA7 PO (07:54)
[2021-10-01 11:25] VITALS: BP 138/69
[2021-10-01] MEDS ORDERED: POTASSIUM CHLORIDE 20MEQ/100ML 100 ML IV PRN ×2 (12:00)
[2021-10-01] MEDS ORDERED: ACETAMINOPHEN 325 MG TAB PO PRN ×2 (12:00)
[2021-10-01] MEDS ORDERED: CLONIDINE HCL 0.1 MG TABLET PO PRN (12:00)
[2021-10-01] MEDS ORDERED: DIPHENHYDRAMINE HCL 25 MG CAPSULE PO PRN (12:00)
[2021-10-01] MEDS ORDERED: MAG/ALUM/SIMETH 30 ML UDCUP PO PRN (12:00)
[2021-10-01] MEDS ORDERED: KCL 20 MEQ ERTAB PO PRN (12:00)
[2021-10-01] MEDS ORDERED: NITROGLYCERIN 0.4 MG SL TAB SL PRN (12:00)
[2021-10-01] MEDS ORDERED: POTASSIUM CHLORIDE 10% ELIXIR 20 MEQ/15 ML UDCUP PO PRN (12:00)
[2021-10-01] MEDS ORDERED: LIDOCAINE HCL-MPF 1% 2ML VIAL IV PRN ×2 (12:00)
[2021-10-01] MEDS ORDERED: ONDANSETRON 4MG INJ IVP PRN (12:00)
[2021-10-01 12:19] LABS: APPEARANCE,URINE Clear (CLEAR); BILIRUBIN,URINE Negative (NEGATIVE); COLOR,URINE Yellow (YELLOW); GLUCOSE, URINE (UA) Negative (NEGATIVE); KETONES,URINE Negative (NEGATIVE); LEUKOCYTE ESTERASE ,URINE Trace (NEGATIVE); NITRATE,URINE Negative (NEGATIVE); OCCULT BLOOD,URINE Trace (NEGATIVE); PH,URINE 5.5 (5.0-8.0); PROTEIN,URINE POS 2+ mg/dL (NEGATIVE); UROBILINOGEN,URINE 0.2 mg/dL (0.2-1.0)
[2021-10-01 12:27] LABS: BACTERIA,URINE Rare /HPF (None Seen); RBC,URINE 0-1 /HPF (0-1); SQUAMOUS EPITHELIAL CELL,UR Rare /HPF (0-2); WBC,URINE 0-1 /HPF (0-1)
[2021-10-01] MEDS ORDERED: ENOXAPARIN SODIUM 40 MG/0.4 ML SYRINGE SQ SCH (12:36)
[2021-10-01] MEDS: FUROSEMIDE 40MG VIAL IV SCH ×2 (13:12→23:31)
[2021-10-01] MEDS ORDERED: 0.9%NACL 10ML VIAL IVP PRN (13:30)
[2021-10-01 16:00] VITALS: BP 159/54
[2021-10-01] MEDS: INSULIN HUMULIN R 100 UNIT/ML 3ML SQ SCH ×2 (16:30→20:53)
[2021-10-01] MEDS ORDERED: FAMOTIDINE 20MG TAB ONE (19:16)
[2021-10-01] MEDS ORDERED: TICAGRELOR 90 MG TABLET ONE (19:16)
[2021-10-01] MEDS: TICAGRELOR 90 MG TABLET PO SCH (20:56)
[2021-10-01] MEDS: FAMOTIDINE 20MG TAB PO SCH (20:56)
[2021-10-01 21:04] VITALS: BP 159/92
[2021-10-02 00:28] VITALS: BP 146/76
[2021-10-02 04:28] VITALS: BP 165/95
[2021-10-02 04:48] LABS: BASOPHILS % (AUTO) 1.1 % (0.0-5.0); EOSINOPHILS % (AUTO) 2.8 % (0.0-8.0); LYMPHOCYTES % (AUTO) 25.1 % (21.0-51.0); MEAN CORPUSCULAR HEMOGLOBIN 26.9 pg (27.0-33.0); MEAN CORPUSCULAR HGB CONC 30.9 g/dL (32.0-36.0); MEAN CORPUSCULAR VOLUME 87.1 fL (79-99); MONOCYTES % (AUTO) 6.9 % (3.0-13.0); NEUTROPHILS % (AUTO) 63.9 % (40.0-77.0); PLATELET COUNT (AUTO) 341 K/uL (130-400); RED BLOOD CELL COUNT(AUTO) 3.79 MIL/uL (4.00-5.50); RED CELL DISTRIBUTION WIDTH 15.4 % (11.0-15.5); WHITE BLOOD COUNT (AUTO) 4.6 K/uL (4.8-10.8)
[2021-10-02 04:50] LABS: CREATININE 1.3 mg/dL (0.5-1.5); MAGNESIUM 1.9 mg/dL (1.80-2.40); POTASSIUM 3.9 mmol/L (3.5-5.1)
[2021-10-02 05:24] LABS: HEMOGLOBIN A1C 7.6 % (4.0-6.0)
[2021-10-02] MEDS: INSULIN HUMULIN R 100 UNIT/ML 3ML SQ SCH ×4 (05:27→20:50)
[2021-10-02 08:00] VITALS: BP 155/92
[2021-10-02] MEDS: TICAGRELOR 90 MG TABLET PO SCH (09:44)
[2021-10-02] MEDS: ASPIRIN 81MG CHEW TAB PO SCH (09:44)
[2021-10-02] MEDS: FAMOTIDINE 20MG TAB PO SCH ×2 (09:44→20:02)
[2021-10-02] MEDS: ENOXAPARIN SODIUM 40 MG/0.4 ML SYRINGE SQ SCH (09:45)
[2021-10-02 10:40] VITALS: BP 144/87
[2021-10-02] MEDS ORDERED: SPIRONOLACTONE 25 MG TAB PO SCH ×2 (11:00)
[2021-10-02] MEDS: FUROSEMIDE 40MG VIAL IV SCH ×2 (12:20→23:51)
[2021-10-02 16:00] VITALS: BP 152/86
[2021-10-02] MEDS ORDERED: TICAGRELOR 90 MG TABLET ONE (19:09)
[2021-10-02] MEDS ORDERED: CARVEDILOL 25 MG TABLET PO ONE (19:10)
[2021-10-02] MEDS: CARVEDILOL 25 MG TABLET PO SCH (20:03)
[2021-10-02 20:24] VITALS: BP 156/82
[2021-10-02] MEDS ORDERED: TICAGRELOR 90 MG TABLET PO ONE (21:00)
[2021-10-03 00:28] VITALS: BP 146/74
[2021-10-03 04:20] LABS: BASOPHILS % (AUTO) 0.7 % (0.0-5.0); EOSINOPHILS % (AUTO) 2.4 % (0.0-8.0); HEMATOCRIT 32.4 % (36-48); LYMPHOCYTES % (AUTO) 22.1 % (21.0-51.0); MEAN CORPUSCULAR HEMOGLOBIN 26.6 pg (27.0-33.0); MEAN CORPUSCULAR HGB CONC 31.5 g/dL (32.0-36.0); MEAN CORPUSCULAR VOLUME 84.6 fL (79-99); NEUTROPHILS % (AUTO) 67.6 % (40.0-77.0); PLATELET COUNT (AUTO) 311 K/uL (130-400); RED BLOOD CELL COUNT(AUTO) 3.83 MIL/uL (4.00-5.50); RED CELL DISTRIBUTION WIDTH 15.2 % (11.0-15.5); WHITE BLOOD COUNT (AUTO) 4.1 K/uL (4.8-10.8)
[2021-10-03 04:28] VITALS: BP 130/78
[2021-10-03 04:36] LABS: ALBUMIN 2.5 g/dL (3.5-5.0); BILIRUBIN,TOTAL 0.6 mg/dL (0.2-1.0); CREATININE 1.3 mg/dL (0.5-1.5); POTASSIUM 3.8 mmol/L (3.5-5.1); TOTAL PROTEIN, SERUM 6.9 g/dL (6.0-8.3)
[2021-10-03 05:19] LABS: B-TYPE NATRIURETIC PEPTIDE 2250 pg/mL (0-100)
[2021-10-03] MEDS: INSULIN HUMULIN R 100 UNIT/ML 3ML SQ SCH ×4 (05:50→21:00)
[2021-10-03 08:00] VITALS: BP 135/69
[2021-10-03] MEDS ORDERED: SPIRONOLACTONE 25 MG TAB PO SCH (09:00)
[2021-10-03] MEDS: CARVEDILOL 25 MG TABLET PO SCH ×2 (09:28→21:25)
[2021-10-03] MEDS: FAMOTIDINE 20MG TAB PO SCH ×2 (09:29→21:17)
[2021-10-03] MEDS: SPIRONOLACTONE 25 MG TAB PO SCH (09:29)
[2021-10-03] MEDS: ATORVASTATIN 40 MG TABLET PO SCH (09:29)
[2021-10-03] MEDS: ASPIRIN 81MG CHEW TAB PO SCH (09:29)
[2021-10-03] MEDS: CLOPIDOGREL 75MG TAB PO SCH (09:29)
[2021-10-03] MEDS: ENOXAPARIN SODIUM 40 MG/0.4 ML SYRINGE SQ SCH (09:30)
[2021-10-03] MEDS: LISINOPRIL 10 MG TABLET PO SCH (09:30)
[2021-10-03 11:31] VITALS: BP 151/87
[2021-10-03] MEDS: FUROSEMIDE 40MG VIAL IV SCH (12:24)
[2021-10-03 15:50] VITALS: BP 141/68
[2021-10-03 19:45] VITALS: BP 153/88
[2021-10-04 00:23] VITALS: BP 145/77
[2021-10-04] MEDS: FUROSEMIDE 40MG VIAL IV SCH ×2 (00:52→11:15)
[2021-10-04 04:20] VITALS: BP 155/80
[2021-10-04] MEDS: INSULIN HUMULIN R 100 UNIT/ML 3ML SQ SCH ×2 (07:25→11:14)
[2021-10-04 07:33] VITALS: BP 170/87
[2021-10-04] MEDS: ASPIRIN 81MG CHEW TAB PO SCH (08:14)
[2021-10-04] MEDS: CLOPIDOGREL 75MG TAB PO SCH (08:14)
[2021-10-04] MEDS: LISINOPRIL 10 MG TABLET PO SCH (08:15)
[2021-10-04] MEDS: ATORVASTATIN 40 MG TABLET PO SCH (08:15)
[2021-10-04] MEDS: SPIRONOLACTONE 25 MG TAB PO SCH (08:15)
[2021-10-04] MEDS: FAMOTIDINE 20MG TAB PO SCH (08:15)
[2021-10-04] MEDS: ENOXAPARIN SODIUM 40 MG/0.4 ML SYRINGE SQ SCH (08:16)
[2021-10-04] MEDS: CARVEDILOL 25 MG TABLET PO SCH (08:16)
[2021-10-04 09:53] LABS: HEMATOCRIT 32.8 % (36-48); MEAN CORPUSCULAR HEMOGLOBIN 27.2 pg (27.0-33.0); MEAN CORPUSCULAR HGB CONC 31.4 g/dL (32.0-36.0); MEAN CORPUSCULAR VOLUME 86.8 fL (79-99); RED BLOOD CELL COUNT(AUTO) 3.78 MIL/uL (4.00-5.50); WHITE BLOOD COUNT (AUTO) 4.7 K/uL (4.8-10.8)
[2021-10-04 10:05] LABS: CREATININE 1.5 mg/dL (0.5-1.5); POTASSIUM 3.8 mmol/L (3.5-5.1)
[2021-10-04 11:23] VITALS: BP 151/72
== END 2021-10-04 12:40 | disposition home or self-care (01) | DRG 291 ==
LOC: EDH 03:54 → EDHIP 03:55 → OBSVTOIN 03:55 → 4BH 10:25
PROVIDERS: ADMIT Hospitalist; ATTEND Hospitalist
DX: I11.0 Hypertensive heart disease with heart failure (principal); I50.41 Acute combined systolic (congestive) and diastolic (congestive) heart failure; I42.0 Dilated cardiomyopathy; E78.5 Hyperlipidemia, unspecified; E87.5 Hyperkalemia; D64.9 Anemia, unspecified; I25.10 Atherosclerotic heart disease of native coronary artery without angina pectoris; E11.51 Type 2 diabetes mellitus with diabetic peripheral angiopathy without gangrene; I25.5 Ischemic cardiomyopathy; Z20.822 Contact with and (suspected) exposure to COVID-19; E78.00 Pure hypercholesterolemia, unspecified; Z95.5 Presence of coronary angioplasty implant and graft; Z88.5 Allergy status to narcotic agent; Z90.49 Acquired absence of other specified parts of digestive tract; Z79.82 Long term (current) use of aspirin; Z79.899 Other long term (current) drug therapy; Z85.038 Personal history of other malignant neoplasm of large intestine; Z91.19 Patient's noncompliance with other medical treatment and regimen; Z91.11 Patient's noncompliance with dietary regimen; Z83.3 Family history of diabetes mellitus; Z82.49 Family history of ischemic heart disease and other diseases of the circulatory system
CPT/HCPCS: 36415; 71045; 80048; 80053; 80061; 81001; 82550; 82948; 83036; 83690; 83735; 83880; 84484; 85025; 85027; 87635; 93005; 93306; 93356; 93880; 93925; G0378; J1650; J1815; J1940

== ENCOUNTER 2021-12-28 22:39 | Emergency (ER) | payer BC, OTHER ==
[~2021-12-28] VITALS: Ht 157.5 cm; Wt 60.8 kg
[~2021-12-28 22:39] MED LIST changes: -EMPA10TA PO; -METF-526 PO; -PANT40TA PO; +SITA1TAB6 PO; -SPIR25TA6 PO; -TICA90TA PO
[2021-12-28 23:18] LABS: BASOPHILS % (AUTO) 1.1 % (0.0-5.0); EOSINOPHILS % (AUTO) 4.7 % (0.0-8.0); HEMATOCRIT 32.8 % (36-48); LYMPHOCYTES % (AUTO) 14.2 % (21.0-51.0); MEAN CORPUSCULAR HEMOGLOBIN 28.8 pg (27.0-33.0); MEAN CORPUSCULAR VOLUME 89.9 fL (79-99); MONOCYTES % (AUTO) 8.1 % (3.0-13.0); NEUTROPHILS % (AUTO) 71.7 % (40.0-77.0); PLATELET COUNT (AUTO) 251 K/uL (130-400); RED BLOOD CELL COUNT(AUTO) 3.65 MIL/uL (4.00-5.50); RED CELL DISTRIBUTION WIDTH 15.9 % (11.0-15.5); WHITE BLOOD COUNT (AUTO) 4.4 K/uL (4.8-10.8)
[2021-12-28 23:40] LABS: CREATININE 1.5 mg/dL (0.5-1.5); POTASSIUM 5.2 mmol/L (3.5-5.1)
[2021-12-28 23:44] LABS: ALBUMIN 2.4 g/dL (3.5-5.0); BILIRUBIN,TOTAL 0.8 mg/dL (0.2-1.0); TOTAL PROTEIN, SERUM 6.4 g/dL (6.0-8.3)
[2021-12-28 23:53] LABS: B-TYPE NATRIURETIC PEPTIDE 1510 pg/mL (0-100)
[2021-12-29] MEDS ORDERED: OSELTAMIVIR PHOSPHATE 75 MG CAP PO SCH
[2021-12-29] MEDS ORDERED: KAYEXALATE 15GM/60ML PO ONE
[2021-12-29] MEDS ORDERED: FUROSEMIDE 40MG VIAL IV ONE (01:00)
[2021-12-29] MEDS ORDERED: ACET-2079 PO (01:02)
[2021-12-29] MEDS ORDERED: OSEL75 PO (01:02)
[2021-12-29 01:08] VITALS: BP 144/99
== END 2021-12-29 01:46 | disposition home or self-care (01) ==
LOC: EDH 22:39
DX: J10.1 Influenza due to other identified influenza virus with other respiratory manifestations (principal); E87.70 Fluid overload, unspecified; Z20.822 Contact with and (suspected) exposure to COVID-19; I11.0 Hypertensive heart disease with heart failure; I50.9 Heart failure, unspecified; E11.9 Type 2 diabetes mellitus without complications; E78.00 Pure hypercholesterolemia, unspecified; Z88.6 Allergy status to analgesic agent; Z79.899 Other long term (current) drug therapy; Z79.82 Long term (current) use of aspirin; Z79.84 Long term (current) use of oral hypoglycemic drugs; Z98.890 Other specified postprocedural states
CPT/HCPCS: 36415; 71045; 80053; 83880; 84484; 85025; 87635; 87804 ×2; 96374; 99284; C9803; J1940

== ENCOUNTER 2022-01-15 04:33 | Inpatient (IN) | payer BC ==
[~2022-01-15] VITALS: Ht 154.9 cm; Wt 46.9 kg
[~2022-01-15 04:33] MED LIST changes: +ACET-2079 PO; +OSEL75 PO
[2022-01-15] MEDS: DEXTROSE 5 %-0.45 % NACL 1,000 ML IV SCH ×3 (05:00→18:08)
[2022-01-15 05:09] LABS: BASOPHILS % (AUTO) 0.3 % (0.0-5.0); HEMATOCRIT 42.5 % (36-48); LYMPHOCYTES % (AUTO) 6.1 % (21.0-51.0); MEAN CORPUSCULAR HEMOGLOBIN 28.1 pg (27.0-33.0); MEAN CORPUSCULAR HGB CONC 30.8 g/dL (32.0-36.0); MEAN CORPUSCULAR VOLUME 91.2 fL (79-99); MONOCYTES % (AUTO) 4.5 % (3.0-13.0); NEUTROPHILS % (AUTO) 88.8 % (40.0-77.0); PLATELET COUNT (AUTO) 301 K/uL (130-400); RED BLOOD CELL COUNT(AUTO) 4.66 MIL/uL (4.00-5.50); RED CELL DISTRIBUTION WIDTH 15.5 % (11.0-15.5); WHITE BLOOD COUNT (AUTO) 6.2 K/uL (4.8-10.8)
[2022-01-15 05:19] LABS: CREATININE 1.4 mg/dL (0.5-1.5); POTASSIUM 4.3 mmol/L (3.5-5.1)
[2022-01-15 05:26] LABS: ALBUMIN 2.8 g/dL (3.5-5.0); TOTAL PROTEIN, SERUM 7.9 g/dL (6.0-8.3)
[2022-01-15] MEDS ORDERED: LABETALOL 20MG VIAL IV PRN (07:00)
[2022-01-15] MEDS ORDERED: LABETALOL 20MG VIAL IV ONE (07:00)
[2022-01-15] MEDS ORDERED: DEXTROSE 50%-WATER 50 ML DISP.SYRIN IV ONE (08:06)
[2022-01-15] MEDS ORDERED: DEXTROSE 50%-WATER 50 ML DISP.SYRIN IV PRN (08:30)
[2022-01-15] MEDS ORDERED: GLUCAGON 1MG KIT 1 MG ML IM PRN (08:30)
[2022-01-15 08:44] LABS: APPEARANCE,URINE CLEAR (CLEAR); BILIRUBIN,URINE NEGATIVE (NEGATIVE); COLOR,URINE YELLOW (YELLOW); GLUCOSE, URINE (UA) 250 mg/dL (NEGATIVE); KETONES,URINE NEGATIVE (NEGATIVE); LEUKOCYTE ESTERASE ,URINE NEGATIVE (NEGATIVE); NITRATE,URINE NEGATIVE (NEGATIVE); OCCULT BLOOD,URINE SMALL (NEGATIVE); PROTEIN,URINE >=300 mg/dL (NEGATIVE)
[2022-01-15] MEDS ORDERED: ENOXAPARIN SODIUM 40 MG/0.4 ML SYRINGE SQ SCH (09:00)
[2022-01-15 09:01] LABS: BACTERIA,URINE Rare /HPF (None Seen); RBC,URINE 0-1 /HPF (0-1); WBC,URINE 0-1 /HPF (0-1)
[2022-01-15 09:02] LABS: HYALINE CASTS, URINE 0-1 /LPF (0-1 /LPF); MUCUS,URINE Few LPF (None Seen); OTHER CASTS, URINE MIXED CELL CASTS 1+ /LPF (None Seen)
[2022-01-15] MEDS: PANTOPRAZOLE 40 MG TAB DR PO SCH (09:20)
[2022-01-15 10:15] VITALS: BP 152/105
[2022-01-15] MEDS ORDERED: CLOP75TA32 PO (14:45)
[2022-01-15] MEDS ORDERED: RANO500T6 PO (14:45)
[2022-01-15] MEDS ORDERED: METF-444 PO (14:45)
[2022-01-15] MEDS ORDERED: TICA90TA PO (14:45)
[2022-01-15] MEDS ORDERED: IBUP-2070 PO (14:45)
[2022-01-15 16:12] VITALS: BP 137/78
[2022-01-15] MEDS ORDERED: FURO20TA6 PO (18:06)
[2022-01-15] MEDS ORDERED: POTASSIUM CHLORIDE 20MEQ/100ML 100 ML IV PRN (18:30)
[2022-01-15] MEDS ORDERED: KCL 20 MEQ ERTAB PO PRN (18:30)
[2022-01-15] MEDS ORDERED: POTASSIUM CHLORIDE 10% ELIXIR 20 MEQ/15 ML UDCUP PO PRN (18:30)
[2022-01-15] MEDS ORDERED: LIDOCAINE HCL-MPF 1% 2ML VIAL IV PRN (18:30)
[2022-01-15 20:01] VITALS: BP 125/61
[2022-01-15] MEDS: RANOLAZINE 500 MG TAB.SR.12H PO SCH (21:53)
[2022-01-15] MEDS: TICAGRELOR 90 MG TABLET PO SCH (21:53)
[2022-01-15] MEDS: CARVEDILOL 25 MG TABLET PO SCH (21:53)
[2022-01-15] MEDS: ACETAMINOPHEN 325 MG TAB PO PRN (21:59)
[2022-01-15 23:00] VITALS: BP 134/75
[2022-01-16 00:38] LABS: BASOPHILS % (AUTO) 0.4 % (0.0-5.0); EOSINOPHILS % (AUTO) 0.6 % (0.0-8.0); HEMATOCRIT 31.2 % (36-48); LYMPHOCYTES % (AUTO) 9.9 % (21.0-51.0); MEAN CORPUSCULAR HEMOGLOBIN 28.7 pg (27.0-33.0); MEAN CORPUSCULAR HGB CONC 32.1 g/dL (32.0-36.0); MEAN CORPUSCULAR VOLUME 89.4 fL (79-99); MONOCYTES % (AUTO) 3.9 % (3.0-13.0); PLATELET COUNT (AUTO) 213 K/uL (130-400); RED BLOOD CELL COUNT(AUTO) 3.49 MIL/uL (4.00-5.50); RED CELL DISTRIBUTION WIDTH 15.3 % (11.0-15.5); WHITE BLOOD COUNT (AUTO) 4.6 K/uL (4.8-10.8)
[2022-01-16 00:45] LABS: CREATININE 1.4 mg/dL (0.5-1.5); POTASSIUM 5.1 mmol/L (3.5-5.1)
[2022-01-16] MEDS ORDERED: FUROSEMIDE 20MG VIAL IV ONE (00:50)
[2022-01-16 01:06] LABS: ABG BASE EXCESS -0.5 mmol/L (-2.0-3.0); ABG HCO3 23.2 mmol/L (21.0-28.0); ABG PCO2 36 mmHg (32-45)
[2022-01-16 01:09] LABS: B-TYPE NATRIURETIC PEPTIDE 1700 pg/mL (0-100)
[2022-01-16] MEDS ORDERED: IPRATROPIUM/ALBUTEROL SULFATE 3 ML SOLUTION IH STA (01:18)
[2022-01-16] MEDS ORDERED: IPRATROPIUM/ALBUTEROL SULFATE 3 ML SOLUTION IH PRN (01:30)
[2022-01-16] MEDS ORDERED: HYDROCODONE/ACETAMINOPHEN 5/325 MG TAB PO STA (02:52)
[2022-01-16] MEDS ORDERED: LORAZEPAM 2 MG/ML 1 ML VIAL IVP ONE (03:00)
[2022-01-16] MEDS ORDERED: IOHEXOL 350 MG/ML 100ML INFUS..BTL IV ONE (04:01)
[2022-01-16 05:20] LABS: BASOPHILS % (AUTO) 0.8 % (0.0-5.0); EOSINOPHILS % (AUTO) 2.8 % (0.0-8.0); HEMATOCRIT 34.1 % (36-48); LYMPHOCYTES % (AUTO) 15.4 % (21.0-51.0); MEAN CORPUSCULAR HEMOGLOBIN 28.1 pg (27.0-33.0); MEAN CORPUSCULAR HGB CONC 31.1 g/dL (32.0-36.0); MEAN CORPUSCULAR VOLUME 90.5 fL (79-99); MONOCYTES % (AUTO) 6.5 % (3.0-13.0); PLATELET COUNT (AUTO) 222 K/uL (130-400); RED BLOOD CELL COUNT(AUTO) 3.77 MIL/uL (4.00-5.50); RED CELL DISTRIBUTION WIDTH 15.5 % (11.0-15.5)
[2022-01-16 05:34] LABS: HEMOGLOBIN A1C 8.2 % (4.0-6.0)
[2022-01-16 05:47] LABS: B-TYPE NATRIURETIC PEPTIDE 1230 pg/mL (0-100); CREATININE 1.4 mg/dL (0.5-1.5); THYROID STIMULATING HORMONE 1.29 uIU/mL (0.36-3.74); TOTAL PROTEIN, SERUM 5.7 g/dL (6.0-8.3)
[2022-01-16 08:00] VITALS: BP 97/67
[2022-01-16] MEDS: TICAGRELOR 90 MG TABLET PO SCH ×2 (08:07→20:09)
[2022-01-16] MEDS: RANOLAZINE 500 MG TAB.SR.12H PO SCH ×2 (08:07→20:08)
[2022-01-16] MEDS: PANTOPRAZOLE 40 MG TAB DR PO SCH (08:08)
[2022-01-16] MEDS: FUROSEMIDE 20 MG TABLET PO SCH (08:08)
[2022-01-16] MEDS: ATORVASTATIN 40 MG TABLET PO SCH (08:08)
[2022-01-16] MEDS: ASPIRIN 81 MG EC TAB PO SCH (08:09)
[2022-01-16] MEDS: CLOPIDOGREL 75MG TAB PO SCH (08:09)
[2022-01-16] MEDS: CARVEDILOL 25 MG TABLET PO SCH ×2 (08:19→20:08)
[2022-01-16 12:00] VITALS: BP 102/53
[2022-01-16] MEDS: ACETAMINOPHEN 325 MG TAB PO PRN (14:43)
[2022-01-16 16:00] VITALS: BP 118/60
[2022-01-16] MEDS ORDERED: DEXTROSE 50%-WATER 50 ML DISP.SYRIN IV PRN (19:30)
[2022-01-16] MEDS ORDERED: GLUCAGON 1MG KIT 1 MG ML IM PRN (19:30)
[2022-01-16 20:00] VITALS: BP 100/58
[2022-01-16] MEDS: INSULIN HUMULIN R 100 UNIT/ML 3ML SQ SCH (20:12)
[2022-01-16] MEDS: DEXTROSE 5 %-0.45 % NACL 1,000 ML IV SCH ×2 (20:12→22:12)
[2022-01-16] MEDS: ONDANSETRON 4MG INJ IVP PRN (22:11)
[2022-01-16 22:32] VITALS: BP 116/72
[2022-01-16] MEDS ORDERED: TRAZODONE HCL 50 MG TAB ONE (22:44)
[2022-01-16] MEDS ORDERED: TRAZODONE HCL 50 MG TAB PO SCH (23:00)
[2022-01-17] VITALS (30 sets, daily range): BP systolic 93–162; BP diastolic 49–100
[2022-01-17] MEDS: ACETAMINOPHEN 325 MG TAB PO PRN (00:09)
[2022-01-17] MEDS ORDERED: PROCHLORPERAZINE 10MG/2ML INJ IM ONE (01:00)
[2022-01-17 03:37] LABS: BASOPHILS % (AUTO) 1.2 % (0.0-5.0); EOSINOPHILS % (AUTO) 3.7 % (0.0-8.0); HEMATOCRIT 36.2 % (36-48); LYMPHOCYTES % (AUTO) 13.3 % (21.0-51.0); MEAN CORPUSCULAR HEMOGLOBIN 28.2 pg (27.0-33.0); MEAN CORPUSCULAR HGB CONC 31.5 g/dL (32.0-36.0); MEAN CORPUSCULAR VOLUME 89.6 fL (79-99); MONOCYTES % (AUTO) 8.6 % (3.0-13.0); PLATELET COUNT (AUTO) 281 K/uL (130-400); RED BLOOD CELL COUNT(AUTO) 4.04 MIL/uL (4.00-5.50); RED CELL DISTRIBUTION WIDTH 15.7 % (11.0-15.5); WHITE BLOOD COUNT (AUTO) 5.1 K/uL (4.8-10.8)
[2022-01-17 03:48] LABS: CREATININE 2.4 mg/dL (0.5-1.5); POTASSIUM 5.7 mmol/L (3.5-5.1)
[2022-01-17 03:55] LABS: ALBUMIN 2.2 g/dL (3.5-5.0); TOTAL PROTEIN, SERUM 6.3 g/dL (6.0-8.3)
[2022-01-17] MEDS ORDERED: NOREPINEPHRIN 4MG/NS 250ML 250 ML IV ONE (06:14)
[2022-01-17] MEDS: INSULIN HUMULIN R 100 UNIT/ML 3ML SQ SCH ×4 (07:30→21:00)
[2022-01-17] MEDS ORDERED: ZOSYN 3.375GM +NS 50ML IV SCH (08:30)
[2022-01-17] MEDS: ASPIRIN 81 MG EC TAB PO SCH (08:48)
[2022-01-17] MEDS: CLOPIDOGREL 75MG TAB PO SCH (08:48)
[2022-01-17] MEDS: PANTOPRAZOLE 40 MG TAB DR PO SCH (08:48)
[2022-01-17] MEDS: ATORVASTATIN 40 MG TABLET PO SCH (08:48)
[2022-01-17] MEDS: FERROUS SULFATE 325 MG TABLET.DR PO SCH (08:48)
[2022-01-17] MEDS: TICAGRELOR 90 MG TABLET PO SCH ×2 (08:48→20:46)
[2022-01-17] MEDS: FUROSEMIDE 20 MG TABLET PO SCH (08:51)
[2022-01-17] MEDS ORDERED: 0.9%NACL 1000ML 1,000 ML IV ONE (10:10)
[2022-01-17] MEDS: DEXTROSE 5 %-0.45 % NACL 1,000 ML IV SCH (10:20)
[2022-01-17] MEDS ORDERED: LACTATED RINGERS IV SCH (12:30)
[2022-01-17] MEDS ORDERED: 0.9%NACL 1000ML 477 ML IV ONE (12:30)
[2022-01-17] MEDS ORDERED: METOPROLOL TARTRATE 1 MG/ML 5ML VIAL IV PRN (13:00)
[2022-01-17] MEDS: CEFEPIME HCL 2 GM VIAL IVP SCH ×2 (13:19→23:43)
[2022-01-17] MEDS: METRONIDAZOLE 500MG/100ML BAG 100 ML IVPB SCH ×2 (13:19→20:46)
[2022-01-17] MEDS: 0.9%NACL 1000ML 1,000 ML IV SCH ×2 (17:23→20:47)
[2022-01-17 17:29] LABS: APPEARANCE,URINE CLOUDY (CLEAR); BILIRUBIN,URINE SMALL (NEGATIVE); COLOR,URINE YELLOW (YELLOW); GLUCOSE, URINE (UA) 250 mg/dL (NEGATIVE); KETONES,URINE 5 mg/dL (NEGATIVE); LEUKOCYTE ESTERASE ,URINE NEGATIVE (NEGATIVE); NITRATE,URINE NEGATIVE (NEGATIVE); OCCULT BLOOD,URINE SMALL (NEGATIVE); PROTEIN,URINE >=300 mg/dL (NEGATIVE)
[2022-01-17 17:40] LABS: AMORPHOUS SEDIMENT,UR Few /LPF (None Seen); BACTERIA,URINE Few /HPF (None Seen); MUCUS,URINE Few LPF (None Seen); SQUAMOUS EPITHELIAL CELL,UR Few /HPF (0-2)
[2022-01-17] MEDS: DEXTROSE 5%-WATER 1,000 ML IV SCH (21:43)
[2022-01-18] VITALS (13 sets, daily range): BP systolic 120–145; BP diastolic 62–77
[2022-01-18 04:42] LABS: BASOPHILS % (AUTO) 0.7 % (0.0-5.0); EOSINOPHILS % (AUTO) 0.9 % (0.0-8.0); HEMATOCRIT 33.9 % (36-48); LYMPHOCYTES % (AUTO) 9.9 % (21.0-51.0); MEAN CORPUSCULAR HEMOGLOBIN 27.7 pg (27.0-33.0); MEAN CORPUSCULAR HGB CONC 31.3 g/dL (32.0-36.0); MEAN CORPUSCULAR VOLUME 88.7 fL (79-99); MONOCYTES % (AUTO) 9.7 % (3.0-13.0); NEUTROPHILS % (AUTO) 78.5 % (40.0-77.0); PLATELET COUNT (AUTO) 302 K/uL (130-400); RED BLOOD CELL COUNT(AUTO) 3.82 MIL/uL (4.00-5.50); RED CELL DISTRIBUTION WIDTH 15.6 % (11.0-15.5); WHITE BLOOD COUNT (AUTO) 6.8 K/uL (4.8-10.8)
[2022-01-18 04:53] LABS: CREATININE 3.2 mg/dL (0.5-1.5); POTASSIUM 5.6 mmol/L (3.5-5.1)
[2022-01-18] MEDS: INSULIN HUMULIN R 100 UNIT/ML 3ML SQ SCH ×4 (05:49→20:59)
[2022-01-18] MEDS: METRONIDAZOLE 500MG/100ML BAG 100 ML IVPB SCH ×3 (05:57→23:08)
[2022-01-18] MEDS: ACETAMINOPHEN 325 MG TAB PO PRN (06:03)
[2022-01-18] MEDS: ATORVASTATIN 40 MG TABLET PO SCH (09:47)
[2022-01-18] MEDS: ASPIRIN 81 MG EC TAB PO SCH (09:47)
[2022-01-18] MEDS: TICAGRELOR 90 MG TABLET PO SCH ×2 (09:48→20:59)
[2022-01-18] MEDS: PANTOPRAZOLE 40 MG TAB DR PO SCH (09:48)
[2022-01-18] MEDS: CLOPIDOGREL 75MG TAB PO SCH (09:48)
[2022-01-18] MEDS: ENOXAPARIN SODIUM 30 MG/0.3 ML SQ SCH (09:49)
[2022-01-18] MEDS: DEXTROSE 5%-WATER 1,000 ML IV SCH ×2 (09:50→17:30)
[2022-01-18] MEDS: CEFEPIME HCL 2 GM VIAL IVP SCH ×2 (13:29→23:08)
[2022-01-18] MEDS: ONDANSETRON 4MG INJ IVP PRN ×2 (14:23→20:57)
[2022-01-18] MEDS: DEXTROSE 5 %-0.45 % NACL 1,000 ML IV SCH (15:30)
[2022-01-19 04:10] VITALS: BP 151/77
[2022-01-19 04:23] LABS: HEMATOCRIT 32.7 % (36-48); MEAN CORPUSCULAR HEMOGLOBIN 28.7 pg (27.0-33.0); MEAN CORPUSCULAR HGB CONC 32.4 g/dL (32.0-36.0); MEAN CORPUSCULAR VOLUME 88.6 fL (79-99); RED BLOOD CELL COUNT(AUTO) 3.69 MIL/uL (4.00-5.50); RED CELL DISTRIBUTION WIDTH 15.5 % (11.0-15.5); WHITE BLOOD COUNT (AUTO) 6.8 K/uL (4.8-10.8)
[2022-01-19 04:35] LABS: CREATININE 3.8 mg/dL (0.5-1.5); POTASSIUM 5.7 mmol/L (3.5-5.1)
[2022-01-19] MEDS: METRONIDAZOLE 500MG/100ML BAG 100 ML IVPB SCH ×3 (05:41→22:45)
[2022-01-19] MEDS: INSULIN HUMULIN R 100 UNIT/ML 3ML SQ SCH ×4 (06:38→20:38)
[2022-01-19 08:00] VITALS: BP 137/88
[2022-01-19] MEDS: TICAGRELOR 90 MG TABLET PO SCH ×2 (08:02→20:38)
[2022-01-19] MEDS: ASPIRIN 81 MG EC TAB PO SCH (08:02)
[2022-01-19] MEDS: CLOPIDOGREL 75MG TAB PO SCH (08:02)
[2022-01-19] MEDS: PANTOPRAZOLE 40 MG TAB DR PO SCH (08:02)
[2022-01-19] MEDS: ATORVASTATIN 40 MG TABLET PO SCH (08:02)
[2022-01-19] MEDS: FERROUS SULFATE 325 MG TABLET.DR PO SCH (08:06)
[2022-01-19] MEDS: ENOXAPARIN SODIUM 30 MG/0.3 ML SQ SCH (08:06)
[2022-01-19] MEDS ORDERED: KAYEXALATE 15GM/60ML PO SCH (09:00)
[2022-01-19] MEDS: SODIUM BICARBONATE 650 MG TAB PO SCH ×3 (09:49→16:28)
[2022-01-19] MEDS: ONDANSETRON 4MG INJ IVP PRN (09:50)
[2022-01-19] MEDS: CEFEPIME HCL 2 GM VIAL IVP SCH ×2 (11:33→22:45)
[2022-01-19 11:34] VITALS: BP 139/76
[2022-01-19 15:47] VITALS: BP 142/85
[2022-01-19 19:19] LABS: CREATININE 4.3 mg/dL (0.5-1.5); POTASSIUM 5.7 mmol/L (3.5-5.1)
[2022-01-19 19:55] VITALS: BP 146/57
[2022-01-19] MEDS ORDERED: FUROSEMIDE 40MG VIAL IV ONE (20:30)
[2022-01-19] MEDS ORDERED: 0.9%NACL 100ML 100 ML ONE (23:16)
[2022-01-19] MEDS ORDERED: FUROSEMIDE 100MG VIAL ONE (23:18)
[2022-01-20] VITALS: BP 151/89
[2022-01-20 03:58] LABS: HEMATOCRIT 34.3 % (36-48); MEAN CORPUSCULAR HEMOGLOBIN 28.3 pg (27.0-33.0); MEAN CORPUSCULAR HGB CONC 32.4 g/dL (32.0-36.0); MEAN CORPUSCULAR VOLUME 87.5 fL (79-99); RED BLOOD CELL COUNT(AUTO) 3.92 MIL/uL (4.00-5.50); RED CELL DISTRIBUTION WIDTH 15.7 % (11.0-15.5); WHITE BLOOD COUNT (AUTO) 6.4 K/uL (4.8-10.8)
[2022-01-20 04:12] LABS: CREATININE 4.5 mg/dL (0.5-1.5); POTASSIUM 5.6 mmol/L (3.5-5.1)
[2022-01-20 04:23] VITALS: BP 143/71
[2022-01-20] MEDS: METRONIDAZOLE 500MG/100ML BAG 100 ML IVPB SCH ×2 (05:04→15:56)
[2022-01-20] MEDS: INSULIN HUMULIN R 100 UNIT/ML 3ML SQ SCH ×4 (05:33→21:00)
[2022-01-20] MEDS: SODIUM BICARBONATE 650 MG TAB PO SCH ×3 (08:59→16:13)
[2022-01-20] MEDS: ENOXAPARIN SODIUM 30 MG/0.3 ML SQ SCH (08:59)
[2022-01-20] MEDS: CLOPIDOGREL 75MG TAB PO SCH (09:00)
[2022-01-20] MEDS: ASPIRIN 81 MG EC TAB PO SCH (09:00)
[2022-01-20] MEDS: TICAGRELOR 90 MG TABLET PO SCH ×2 (09:00→22:27)
[2022-01-20] MEDS: PANTOPRAZOLE 40 MG TAB DR PO SCH (09:00)
[2022-01-20] MEDS: ATORVASTATIN 40 MG TABLET PO SCH (09:00)
[2022-01-20 09:08] VITALS: BP 160/93
[2022-01-20] MEDS ORDERED: KAYEXALATE 15GM/60ML PO SCH (10:30)
[2022-01-20 11:10] VITALS: BP 164/97
[2022-01-20] MEDS: CEFEPIME HCL 2 GM VIAL IVP SCH (11:54)
[2022-01-20] MEDS ORDERED: GUAIFENESIN-DM 200/20 MG 10 ML PO PRN (14:00)
[2022-01-20] MEDS ORDERED: FUROSEMIDE 20MG VIAL IV SCH (15:00)
[2022-01-20 16:06] VITALS: BP 162/94
[2022-01-20] MEDS: ACETAMINOPHEN 325 MG TAB PO PRN ×2 (16:13→22:28)
[2022-01-20 19:12] VITALS: BP 177/97
[2022-01-20] MEDS: ONDANSETRON 4MG INJ IVP PRN (23:38)
[2022-01-21] VITALS (7 sets, daily range): BP systolic 163–183; BP diastolic 88–106
[2022-01-21] MEDS: FUROSEMIDE 100MG VIAL 100 MG in 0.9%NACL 100ML 100 ML IV SCH ×2 (01:19→13:50)
[2022-01-21] MEDS: NITROGLYCERIN 0.4 MG SL TAB SL PRN ×2 (01:20→03:26)
[2022-01-21 03:39] LABS: HEMATOCRIT 35.4 % (36-48); MEAN CORPUSCULAR HEMOGLOBIN 27.9 pg (27.0-33.0); MEAN CORPUSCULAR HGB CONC 31.9 g/dL (32.0-36.0); MEAN CORPUSCULAR VOLUME 87.4 fL (79-99); RED BLOOD CELL COUNT(AUTO) 4.05 MIL/uL (4.00-5.50); WHITE BLOOD COUNT (AUTO) 6.6 K/uL (4.8-10.8)
[2022-01-21 03:51] LABS: CREATININE 4.7 mg/dL (0.5-1.5); POTASSIUM 4.8 mmol/L (3.5-5.1)
[2022-01-21] MEDS: INSULIN HUMULIN R 100 UNIT/ML 3ML SQ SCH ×4 (06:47→20:16)
[2022-01-21] MEDS: CLOPIDOGREL 75MG TAB PO SCH (08:07)
[2022-01-21] MEDS: TICAGRELOR 90 MG TABLET PO SCH ×2 (08:07→20:32)
[2022-01-21] MEDS: ACETAMINOPHEN 325 MG TAB PO PRN (08:07)
[2022-01-21] MEDS: ASPIRIN 81 MG EC TAB PO SCH (08:07)
[2022-01-21] MEDS: FERROUS SULFATE 325 MG TABLET.DR PO SCH (08:07)
[2022-01-21] MEDS: ATORVASTATIN 40 MG TABLET PO SCH (08:10)
[2022-01-21] MEDS: PANTOPRAZOLE 40 MG TAB DR PO SCH (08:10)
[2022-01-21] MEDS: SODIUM BICARBONATE 650 MG TAB PO SCH ×3 (08:10→15:55)
[2022-01-21] MEDS: ENOXAPARIN SODIUM 30 MG/0.3 ML SQ SCH (08:15)
[2022-01-21] MEDS: ONDANSETRON 4MG INJ IVP PRN (08:23)
[2022-01-22] VITALS: BP 110/56
[2022-01-22] MEDS ORDERED: FUROSEMIDE 100MG VIAL ONE (00:38)
[2022-01-22] MEDS: FUROSEMIDE 100MG VIAL 100 MG in 0.9%NACL 100ML 100 ML IV SCH ×2 (00:45→12:43)
[2022-01-22 03:33] VITALS: BP 158/103
[2022-01-22 04:32] LABS: BASOPHILS % (AUTO) 0.8 % (0.0-5.0); EOSINOPHILS % (AUTO) 1.8 % (0.0-8.0); HEMATOCRIT 38.8 % (36-48); LYMPHOCYTES % (AUTO) 9.7 % (21.0-51.0); MEAN CORPUSCULAR HEMOGLOBIN 28.2 pg (27.0-33.0); MEAN CORPUSCULAR VOLUME 85.5 fL (79-99); MONOCYTES % (AUTO) 11.7 % (3.0-13.0); NEUTROPHILS % (AUTO) 75.8 % (40.0-77.0); PLATELET COUNT (AUTO) 471 K/uL (130-400); RED BLOOD CELL COUNT(AUTO) 4.54 MIL/uL (4.00-5.50); RED CELL DISTRIBUTION WIDTH 16.1 % (11.0-15.5); WHITE BLOOD COUNT (AUTO) 8.3 K/uL (4.8-10.8)
[2022-01-22 04:51] LABS: ALANINE AMINOTRANSFERASE 14 U/L (12-78); ALBUMIN 2.5 g/dL (3.5-5.0); ASPARTATE AMINOTRANSFERASE 26 U/L (10-37); CARBON DIOXIDE 24 mmol/L (21-32); CHLORIDE 96 mmol/L (101-111); CREATININE 4.4 mg/dL (0.5-1.5); GLOMERULAR FILTR. RATE CALC 11 mL/min (>60); GLUCOSE,RANDOM 114 mg/dL (70-105); POTASSIUM 4.1 mmol/L (3.5-5.1); SODIUM SERUM 135 mmol/L (136-145); TOTAL PROTEIN, SERUM 7.5 g/dL (6.0-8.3); UREA NITROGEN, BLOOD 48 mg/dL (7-18)
[2022-01-22] MEDS: INSULIN HUMULIN R 100 UNIT/ML 3ML SQ SCH ×4 (06:34→20:57)
[2022-01-22 07:31] VITALS: BP 177/98
[2022-01-22] MEDS: PANTOPRAZOLE 40 MG TAB DR PO SCH (07:33)
[2022-01-22] MEDS: ASPIRIN 81 MG EC TAB PO SCH (07:33)
[2022-01-22] MEDS: ATORVASTATIN 40 MG TABLET PO SCH (07:33)
[2022-01-22] MEDS: CLOPIDOGREL 75MG TAB PO SCH (07:33)
[2022-01-22] MEDS: SODIUM BICARBONATE 650 MG TAB PO SCH ×3 (07:33→16:06)
[2022-01-22] MEDS: TICAGRELOR 90 MG TABLET PO SCH ×2 (07:33→20:57)
[2022-01-22] MEDS: ENOXAPARIN SODIUM 30 MG/0.3 ML SQ SCH (07:34)
[2022-01-22 11:13] VITALS: BP 163/101
[2022-01-22 15:17] VITALS: BP 149/90
[2022-01-22 19:15] VITALS: BP 142/90
[2022-01-22] MEDS: TRAZODONE HCL 50 MG TAB PO SCH (20:57)
[2022-01-22] MEDS: ACETAMINOPHEN 325 MG TAB PO PRN (21:01)
[2022-01-23] VITALS (7 sets, daily range): BP systolic 95–118; BP diastolic 52–72
[2022-01-23] MEDS: FUROSEMIDE 100MG VIAL 100 MG in 0.9%NACL 100ML 100 ML IV SCH (01:13)
[2022-01-23 04:40] LABS: BASOPHILS % (AUTO) 0.5 % (0.0-5.0); EOSINOPHILS % (AUTO) 1.6 % (0.0-8.0); HEMATOCRIT 45.9 % (36-48); LYMPHOCYTES % (AUTO) 7.6 % (21.0-51.0); MEAN CORPUSCULAR HEMOGLOBIN 28.1 pg (27.0-33.0); MEAN CORPUSCULAR HGB CONC 32.5 g/dL (32.0-36.0); MEAN CORPUSCULAR VOLUME 86.4 fL (79-99); MONOCYTES % (AUTO) 10.9 % (3.0-13.0); NEUTROPHILS % (AUTO) 79.1 % (40.0-77.0); PLATELET COUNT (AUTO) 463 K/uL (130-400); RED BLOOD CELL COUNT(AUTO) 5.31 MIL/uL (4.00-5.50); RED CELL DISTRIBUTION WIDTH 16.6 % (11.0-15.5); WHITE BLOOD COUNT (AUTO) 9.3 K/uL (4.8-10.8)
[2022-01-23 04:54] LABS: CREATININE 4.1 mg/dL (0.5-1.5)
[2022-01-23 05:00] LABS: B-TYPE NATRIURETIC PEPTIDE 2990 pg/mL (0-100)
[2022-01-23] MEDS: INSULIN HUMULIN R 100 UNIT/ML 3ML SQ SCH ×4 (06:32→21:00)
[2022-01-23] MEDS: PAROXETINE HCL 20 MG TABLET PO SCH (09:08)
[2022-01-23] MEDS: ENOXAPARIN SODIUM 30 MG/0.3 ML SQ SCH (09:08)
[2022-01-23] MEDS: TICAGRELOR 90 MG TABLET PO SCH ×2 (09:08→21:13)
[2022-01-23] MEDS: ATORVASTATIN 40 MG TABLET PO SCH (09:09)
[2022-01-23] MEDS: SODIUM BICARBONATE 650 MG TAB PO SCH ×3 (09:09→16:49)
[2022-01-23] MEDS: CLOPIDOGREL 75MG TAB PO SCH (09:10)
[2022-01-23] MEDS: FERROUS SULFATE 325 MG TABLET.DR PO SCH (09:10)
[2022-01-23] MEDS: ASPIRIN 81 MG EC TAB PO SCH (09:10)
[2022-01-23] MEDS: PANTOPRAZOLE 40 MG TAB DR PO SCH (09:12)
[2022-01-23] MEDS: FUROSEMIDE 40MG VIAL IV SCH ×2 (13:55→21:22)
[2022-01-23] MEDS: TRAZODONE HCL 50 MG TAB PO SCH (21:13)
[2022-01-24 04:07] LABS: HEMATOCRIT 44.9 % (36-48); MEAN CORPUSCULAR HEMOGLOBIN 28.2 pg (27.0-33.0); MEAN CORPUSCULAR HGB CONC 32.7 g/dL (32.0-36.0); MEAN CORPUSCULAR VOLUME 86.2 fL (79-99); RED BLOOD CELL COUNT(AUTO) 5.21 MIL/uL (4.00-5.50); RED CELL DISTRIBUTION WIDTH 16.3 % (11.0-15.5); WHITE BLOOD COUNT (AUTO) 12.1 K/uL (4.8-10.8)
[2022-01-24 04:24] VITALS: BP_SYST 132; BP_SYST 149; BP_DIAS 82; BP_DIAS 85
[2022-01-24 04:29] LABS: CREATININE 4.4 mg/dL (0.5-1.5); POTASSIUM 4.2 mmol/L (3.5-5.1)
[2022-01-24] MEDS: FUROSEMIDE 40MG VIAL IV SCH ×3 (05:33→21:12)
[2022-01-24] MEDS: INSULIN HUMULIN R 100 UNIT/ML 3ML SQ SCH ×4 (05:53→21:00)
[2022-01-24 08:00] VITALS: BP 93/58
[2022-01-24] MEDS: ASPIRIN 81 MG EC TAB PO SCH (10:10)
[2022-01-24] MEDS: ATORVASTATIN 40 MG TABLET PO SCH (10:10)
[2022-01-24] MEDS: TICAGRELOR 90 MG TABLET PO SCH ×2 (10:10→20:13)
[2022-01-24] MEDS: PANTOPRAZOLE 40 MG TAB DR PO SCH (10:10)
[2022-01-24] MEDS: ENOXAPARIN SODIUM 30 MG/0.3 ML SQ SCH (10:11)
[2022-01-24] MEDS: PAROXETINE HCL 20 MG TABLET PO SCH (10:12)
[2022-01-24] MEDS: SODIUM BICARBONATE 650 MG TAB PO SCH ×3 (10:12→18:54)
[2022-01-24 12:00] VITALS: BP 111/63
[2022-01-24 16:00] VITALS: BP 112/70
[2022-01-24 19:24] VITALS: BP 129/76
[2022-01-24] MEDS: TRAZODONE HCL 50 MG TAB PO SCH (20:13)
[2022-01-25 00:21] VITALS: BP 129/77
[2022-01-25 03:22] VITALS: BP 143/79
[2022-01-25 04:22] LABS: HEMATOCRIT 43.3 % (36-48); MEAN CORPUSCULAR HEMOGLOBIN 28.1 pg (27.0-33.0); MEAN CORPUSCULAR HGB CONC 32.6 g/dL (32.0-36.0); MEAN CORPUSCULAR VOLUME 86.3 fL (79-99); RED BLOOD CELL COUNT(AUTO) 5.02 MIL/uL (4.00-5.50); RED CELL DISTRIBUTION WIDTH 16.4 % (11.0-15.5)
[2022-01-25 04:23] LABS: CREATININE 4.7 mg/dL (0.5-1.5); POTASSIUM 4.3 mmol/L (3.5-5.1)
[2022-01-25] MEDS: FUROSEMIDE 40MG VIAL IV SCH (05:14)
[2022-01-25] MEDS: INSULIN HUMULIN R 100 UNIT/ML 3ML SQ SCH ×4 (05:50→21:00)
[2022-01-25] MEDS: SODIUM BICARBONATE 650 MG TAB PO SCH ×2 (07:30→10:24)
[2022-01-25 07:53] VITALS: BP 135/84
[2022-01-25] MEDS: ACETAMINOPHEN 325 MG TAB PO PRN (10:16)
[2022-01-25] MEDS: TICAGRELOR 90 MG TABLET PO SCH ×2 (10:24→21:17)
[2022-01-25] MEDS: PAROXETINE HCL 20 MG TABLET PO SCH (10:24)
[2022-01-25] MEDS: ATORVASTATIN 40 MG TABLET PO SCH (10:24)
[2022-01-25] MEDS: FERROUS SULFATE 325 MG TABLET.DR PO SCH (10:24)
[2022-01-25] MEDS: PANTOPRAZOLE 40 MG TAB DR PO SCH (10:24)
[2022-01-25] MEDS: ASPIRIN 81 MG EC TAB PO SCH (10:24)
[2022-01-25] MEDS: ENOXAPARIN SODIUM 30 MG/0.3 ML SQ SCH (10:25)
[2022-01-25 11:54] VITALS: BP 135/76
[2022-01-25 17:51] VITALS: BP 131/82
[2022-01-25 20:17] VITALS: BP 125/68
[2022-01-25] MEDS: TRAZODONE HCL 50 MG TAB PO SCH (21:17)
[2022-01-26 00:14] VITALS: BP 143/89
[2022-01-26 03:13] LABS: HEMATOCRIT 41.1 % (36-48); MEAN CORPUSCULAR HEMOGLOBIN 28.6 pg (27.0-33.0); MEAN CORPUSCULAR HGB CONC 32.6 g/dL (32.0-36.0); MEAN CORPUSCULAR VOLUME 87.8 fL (79-99); RED BLOOD CELL COUNT(AUTO) 4.68 MIL/uL (4.00-5.50); RED CELL DISTRIBUTION WIDTH 16.5 % (11.0-15.5)
[2022-01-26 03:23] LABS: CREATININE 4.7 mg/dL (0.5-1.5); POTASSIUM 4.9 mmol/L (3.5-5.1)
[2022-01-26 04:00] VITALS: BP 150/74
[2022-01-26] MEDS: INSULIN HUMULIN R 100 UNIT/ML 3ML SQ SCH ×4 (06:40→21:00)
[2022-01-26 08:07] VITALS: BP 116/68
[2022-01-26] MEDS: DEXTROSE 5 %-0.45 % NACL 500 ML IV SCH ×3 (09:00→20:10)
[2022-01-26] MEDS: TICAGRELOR 90 MG TABLET PO SCH ×2 (09:00→20:10)
[2022-01-26] MEDS: ASPIRIN 81 MG EC TAB PO SCH (09:00)
[2022-01-26] MEDS: ATORVASTATIN 40 MG TABLET PO SCH (09:00)
[2022-01-26] MEDS: SODIUM BICARBONATE 650 MG TAB PO SCH (09:00)
[2022-01-26] MEDS: PANTOPRAZOLE 40 MG TAB DR PO SCH (09:01)
[2022-01-26] MEDS: ENOXAPARIN SODIUM 30 MG/0.3 ML SQ SCH (09:01)
[2022-01-26] MEDS: PAROXETINE HCL 20 MG TABLET PO SCH (09:01)
[2022-01-26 11:35] VITALS: BP 122/72
[2022-01-26 16:00] VITALS: BP 131/72
[2022-01-26 19:43] VITALS: BP 140/82
[2022-01-26] MEDS: TRAZODONE HCL 50 MG TAB PO SCH (20:10)
[2022-01-27] VITALS (7 sets, daily range): BP systolic 109–134; BP diastolic 55–75
[2022-01-27] MEDS: DEXTROSE 5 %-0.45 % NACL 500 ML IV SCH (03:34)
[2022-01-27 04:37] LABS: HEMATOCRIT 41.8 % (36-48); MEAN CORPUSCULAR HGB CONC 32.3 g/dL (32.0-36.0); MEAN CORPUSCULAR VOLUME 86.7 fL (79-99); RED BLOOD CELL COUNT(AUTO) 4.82 MIL/uL (4.00-5.50); WHITE BLOOD COUNT (AUTO) 10.6 K/uL (4.8-10.8)
[2022-01-27 04:41] LABS: CREATININE 4.3 mg/dL (0.5-1.5); POTASSIUM 4.1 mmol/L (3.5-5.1)
[2022-01-27] MEDS: INSULIN HUMULIN R 100 UNIT/ML 3ML SQ SCH ×4 (06:36→21:36)
[2022-01-27] MEDS ORDERED: DRONABINOL 2.5 MG CAP PO SCH (07:30)
[2022-01-27] MEDS: ASPIRIN 81 MG EC TAB PO SCH (08:40)
[2022-01-27] MEDS: SODIUM BICARBONATE 650 MG TAB PO SCH (08:40)
[2022-01-27] MEDS: PANTOPRAZOLE 40 MG TAB DR PO SCH (08:40)
[2022-01-27] MEDS: PAROXETINE HCL 20 MG TABLET PO SCH (08:40)
[2022-01-27] MEDS: TICAGRELOR 90 MG TABLET PO SCH ×2 (08:40→21:35)
[2022-01-27] MEDS: ENOXAPARIN SODIUM 30 MG/0.3 ML SQ SCH (08:41)
[2022-01-27] MEDS: FERROUS SULFATE 325 MG TABLET.DR PO SCH (08:41)
[2022-01-27] MEDS: ATORVASTATIN 40 MG TABLET PO SCH (08:41)
[2022-01-27] MEDS: LOPERAMIDE HCL 2 MG CAP PO PRN ×2 (10:20→16:38)
[2022-01-27] MEDS: ACETAMINOPHEN 325 MG TAB PO PRN (10:20)
[2022-01-27] MEDS: DRONABINOL 2.5 MG CAP PO SCH (16:38)
[2022-01-27] MEDS: TRAZODONE HCL 50 MG TAB PO SCH (21:34)
[2022-01-28 00:21] VITALS: BP 120/60
[2022-01-28 03:21] VITALS: BP 113/61
[2022-01-28 04:18] LABS: HEMATOCRIT 40.9 % (36-48); MEAN CORPUSCULAR HEMOGLOBIN 28.2 pg (27.0-33.0); MEAN CORPUSCULAR HGB CONC 32.3 g/dL (32.0-36.0); MEAN CORPUSCULAR VOLUME 87.4 fL (79-99); RED BLOOD CELL COUNT(AUTO) 4.68 MIL/uL (4.00-5.50); RED CELL DISTRIBUTION WIDTH 15.9 % (11.0-15.5)
[2022-01-28 04:29] LABS: ALBUMIN 2.2 g/dL (3.5-5.0); CREATININE 4.3 mg/dL (0.5-1.5); POTASSIUM 3.9 mmol/L (3.5-5.1)
[2022-01-28] MEDS: INSULIN HUMULIN R 100 UNIT/ML 3ML SQ SCH ×4 (06:21→21:00)
[2022-01-28] MEDS: INSULIN GLARGINE 100 UNITS/ML 10 ML VIAL SQ SCH (06:31)
[2022-01-28] MEDS: DRONABINOL 2.5 MG CAP PO SCH ×2 (06:32→16:38)
[2022-01-28 08:00] VITALS: BP 99/55
[2022-01-28] MEDS: ENOXAPARIN SODIUM 30 MG/0.3 ML SQ SCH (10:15)
[2022-01-28] MEDS: ASPIRIN 81 MG EC TAB PO SCH (10:16)
[2022-01-28] MEDS: ATORVASTATIN 40 MG TABLET PO SCH (10:16)
[2022-01-28] MEDS: SODIUM BICARBONATE 650 MG TAB PO SCH (10:16)
[2022-01-28] MEDS: PANTOPRAZOLE 40 MG TAB DR PO SCH (10:17)
[2022-01-28] MEDS: PAROXETINE HCL 20 MG TABLET PO SCH (10:17)
[2022-01-28] MEDS: TICAGRELOR 90 MG TABLET PO SCH ×2 (10:17→21:17)
[2022-01-28 11:57] VITALS: BP 112/60
[2022-01-28 16:00] VITALS: BP 127/67
[2022-01-28 19:24] VITALS: BP 125/72
[2022-01-28] MEDS: TRAZODONE HCL 50 MG TAB PO SCH (21:16)
[2022-01-29 00:24] VITALS: BP 127/73
[2022-01-29 04:00] VITALS: BP 135/76
[2022-01-29 04:27] LABS: HEMATOCRIT 40.2 % (36-48); MEAN CORPUSCULAR HEMOGLOBIN 28.5 pg (27.0-33.0); MEAN CORPUSCULAR HGB CONC 32.6 g/dL (32.0-36.0); MEAN CORPUSCULAR VOLUME 87.4 fL (79-99); RED BLOOD CELL COUNT(AUTO) 4.6 MIL/uL (4.00-5.50); RED CELL DISTRIBUTION WIDTH 15.8 % (11.0-15.5); WHITE BLOOD COUNT (AUTO) 10.7 K/uL (4.8-10.8)
[2022-01-29 04:36] LABS: ALBUMIN 2.1 g/dL (3.5-5.0); CREATININE 4.4 mg/dL (0.5-1.5); MAGNESIUM 2.1 mg/dL (1.80-2.40); POTASSIUM 4.3 mmol/L (3.5-5.1)
[2022-01-29] MEDS: INSULIN HUMULIN R 100 UNIT/ML 3ML SQ SCH ×4 (05:58→21:00)
[2022-01-29] MEDS: DRONABINOL 2.5 MG CAP PO SCH ×3 (06:41→17:17)
[2022-01-29] MEDS: INSULIN GLARGINE 100 UNITS/ML 10 ML VIAL SQ SCH ×2 (06:44→06:47)
[2022-01-29 08:00] VITALS: BP 113/60
[2022-01-29] MEDS: SODIUM BICARBONATE 650 MG TAB PO SCH (08:48)
[2022-01-29] MEDS: ASPIRIN 81 MG EC TAB PO SCH (08:48)
[2022-01-29] MEDS: PAROXETINE HCL 20 MG TABLET PO SCH (08:48)
[2022-01-29] MEDS: PANTOPRAZOLE 40 MG TAB DR PO SCH (08:48)
[2022-01-29] MEDS: ATORVASTATIN 40 MG TABLET PO SCH (08:48)
[2022-01-29] MEDS: FERROUS SULFATE 325 MG TABLET.DR PO SCH (08:48)
[2022-01-29] MEDS: TICAGRELOR 90 MG TABLET PO SCH ×2 (08:48→22:09)
[2022-01-29] MEDS: ENOXAPARIN SODIUM 30 MG/0.3 ML SQ SCH (08:49)
[2022-01-29] MEDS: ONDANSETRON 4MG INJ IVP PRN (10:05)
[2022-01-29 12:00] VITALS: BP 89/58
[2022-01-29] MEDS: 0.9% NACL 500ML IV.SOLN 500 ML IV SCH ×3 (12:40→22:20)
[2022-01-29] MEDS ORDERED: FAMOTIDINE 20MG TAB PO PRN (13:30)
[2022-01-29] MEDS ORDERED: DIPHENHYDRAMINE HCL 25 MG CAPSULE PO PRN (13:30)
[2022-01-29] MEDS ORDERED: METOCLOPRAMIDE 10 MG TABLET PO PRN (13:30)
[2022-01-29 16:00] VITALS: BP 133/71
[2022-01-29 19:21] VITALS: BP 126/70
[2022-01-29] MEDS: TRAZODONE HCL 50 MG TAB PO SCH (22:10)
[2022-01-30 00:21] VITALS: BP 126/61
[2022-01-30 03:21] VITALS: BP 110/55
[2022-01-30 04:24] LABS: HEMATOCRIT 39.3 % (36-48); MEAN CORPUSCULAR HEMOGLOBIN 28.4 pg (27.0-33.0); MEAN CORPUSCULAR HGB CONC 32.1 g/dL (32.0-36.0); MEAN CORPUSCULAR VOLUME 88.5 fL (79-99); RED BLOOD CELL COUNT(AUTO) 4.44 MIL/uL (4.00-5.50); RED CELL DISTRIBUTION WIDTH 15.8 % (11.0-15.5); WHITE BLOOD COUNT (AUTO) 10.1 K/uL (4.8-10.8)
[2022-01-30 04:53] LABS: CREATININE 4.1 mg/dL (0.5-1.5); POTASSIUM 4.3 mmol/L (3.5-5.1)
[2022-01-30] MEDS: INSULIN GLARGINE 100 UNITS/ML 10 ML VIAL SQ SCH (06:56)
[2022-01-30] MEDS: INSULIN HUMULIN R 100 UNIT/ML 3ML SQ SCH ×4 (07:09→22:28)
[2022-01-30 08:00] VITALS: BP 130/74
[2022-01-30] MEDS: ATORVASTATIN 40 MG TABLET PO SCH (08:43)
[2022-01-30] MEDS: DRONABINOL 2.5 MG CAP PO SCH (08:43)
[2022-01-30] MEDS: TICAGRELOR 90 MG TABLET PO SCH ×2 (08:43→22:25)
[2022-01-30] MEDS: ASPIRIN 81 MG EC TAB PO SCH (08:43)
[2022-01-30] MEDS: PANTOPRAZOLE 40 MG TAB DR PO SCH (08:43)
[2022-01-30] MEDS: PAROXETINE HCL 20 MG TABLET PO SCH (08:43)
[2022-01-30] MEDS: ENOXAPARIN SODIUM 30 MG/0.3 ML SQ SCH (08:44)
[2022-01-30] MEDS ORDERED: SOLU-MEDROL 125MG VIAL IVP SCH (09:00)
[2022-01-30] MEDS ORDERED: DIPHENHYDRAMINE HCL 25 MG CAPSULE ONE (09:10)
[2022-01-30] MEDS: DIPHENHYDRAMINE HCL 25 MG CAPSULE PO PRN (09:11)
[2022-01-30 11:21] VITALS: BP 123/70
[2022-01-30 11:44] LABS: PHOSPHORUS 5.7 mg/dL (2.5-4.9)
[2022-01-30 16:36] VITALS: BP 126/76
[2022-01-30 19:00] VITALS: BP 143/77
[2022-01-30] MEDS: TRAZODONE HCL 50 MG TAB PO SCH (22:25)
[2022-01-31 00:34] VITALS: BP 161/91
[2022-01-31 04:09] VITALS: BP 156/88
[2022-01-31 05:18] LABS: MEAN CORPUSCULAR HEMOGLOBIN 27.9 pg (27.0-33.0); MEAN CORPUSCULAR HGB CONC 32.4 g/dL (32.0-36.0); MEAN CORPUSCULAR VOLUME 86.1 fL (79-99); MONOCYTES % (AUTO) 7.6 % (3.0-13.0); NEUTROPHILS % (AUTO) 86.9 % (40.0-77.0); PLATELET COUNT (AUTO) 515 K/uL (130-400); RED BLOOD CELL COUNT(AUTO) 4.76 MIL/uL (4.00-5.50); RED CELL DISTRIBUTION WIDTH 15.1 % (11.0-15.5); WHITE BLOOD COUNT (AUTO) 8.7 K/uL (4.8-10.8)
[2022-01-31 05:31] LABS: CREATININE 3.8 mg/dL (0.5-1.5); POTASSIUM 4.6 mmol/L (3.5-5.1)
[2022-01-31] MEDS ORDERED: 0.9% NACL 500ML IV.SOLN 500 ML IV ONE (06:10)
[2022-01-31] MEDS ORDERED: 0.9% NACL 500ML IV.SOLN 500 ML IV SCH (06:30)
[2022-01-31] MEDS: INSULIN HUMULIN R 100 UNIT/ML 3ML SQ SCH ×5 (06:33→20:52)
[2022-01-31] MEDS: INSULIN GLARGINE 100 UNITS/ML 10 ML VIAL SQ SCH (06:34)
[2022-01-31 07:02] VITALS: BP 160/89
[2022-01-31] MEDS: ENOXAPARIN SODIUM 30 MG/0.3 ML SQ SCH (07:43)
[2022-01-31] MEDS: ATORVASTATIN 40 MG TABLET PO SCH (07:44)
[2022-01-31] MEDS: PANTOPRAZOLE 40 MG TAB DR PO SCH (07:44)
[2022-01-31] MEDS: PAROXETINE HCL 20 MG TABLET PO SCH (07:44)
[2022-01-31] MEDS: TICAGRELOR 90 MG TABLET PO SCH ×2 (07:44→20:50)
[2022-01-31] MEDS: ACETAMINOPHEN 325 MG TAB PO PRN (07:44)
[2022-01-31] MEDS: ASPIRIN 81 MG EC TAB PO SCH (07:44)
[2022-01-31] MEDS: FERROUS SULFATE 325 MG TABLET.DR PO SCH (07:44)
[2022-01-31] MEDS ORDERED: HYDROMORPHONE 0.5 MG SYG (0.5MG/0.5ML) IVP SCH (08:00)
[2022-01-31 12:00] VITALS: BP 138/71
[2022-01-31 16:00] VITALS: BP 151/79
[2022-01-31 19:00] VITALS: BP 164/96
[2022-01-31] MEDS: DIPHENHYDRAMINE HCL 25 MG CAPSULE PO PRN (20:49)
[2022-01-31] MEDS: TRAZODONE HCL 50 MG TAB PO SCH (20:49)
[2022-02-01] VITALS: BP 144/80
[2022-02-01 04:00] VITALS: BP 149/79
[2022-02-01 06:00] LABS: HEMATOCRIT 39.8 % (36-48); MEAN CORPUSCULAR HEMOGLOBIN 28.3 pg (27.0-33.0); MEAN CORPUSCULAR HGB CONC 32.2 g/dL (32.0-36.0); MEAN CORPUSCULAR VOLUME 88.1 fL (79-99); RED BLOOD CELL COUNT(AUTO) 4.52 MIL/uL (4.00-5.50); RED CELL DISTRIBUTION WIDTH 15.1 % (11.0-15.5); WHITE BLOOD COUNT (AUTO) 9.7 K/uL (4.8-10.8)
[2022-02-01 06:03] LABS: CREATININE 3.1 mg/dL (0.5-1.5); POTASSIUM 4.4 mmol/L (3.5-5.1)
[2022-02-01] MEDS: INSULIN HUMULIN R 100 UNIT/ML 3ML SQ SCH ×7 (06:35→21:50)
[2022-02-01] MEDS: INSULIN GLARGINE 100 UNITS/ML 10 ML VIAL SQ SCH (06:36)
[2022-02-01 07:05] VITALS: BP 145/80
[2022-02-01] MEDS: PAROXETINE HCL 20 MG TABLET PO SCH (09:50)
[2022-02-01] MEDS: PANTOPRAZOLE 40 MG TAB DR PO SCH (09:50)
[2022-02-01] MEDS: FERROUS SULFATE 325 MG TABLET.DR PO SCH (09:50)
[2022-02-01] MEDS: ENOXAPARIN SODIUM 30 MG/0.3 ML SQ SCH (09:50)
[2022-02-01] MEDS: ASPIRIN 81 MG EC TAB PO SCH (09:50)
[2022-02-01] MEDS: TICAGRELOR 90 MG TABLET PO SCH ×2 (09:50→21:04)
[2022-02-01] MEDS: ATORVASTATIN 40 MG TABLET PO SCH (09:50)
[2022-02-01] MEDS ORDERED: MIDAZOLAM HCL 1 MG/ML 2ML VIAL ONE (10:26)
[2022-02-01] MEDS ORDERED: NITROGLYCERIN 50MG VIAL ONE (10:26)
[2022-02-01] MEDS ORDERED: HEPARIN 10,000 UNIT/10ML (1,000 UNIT/ML) VIAL ONE (10:26)
[2022-02-01] MEDS ORDERED: IODIXANOL 320 MG/ML 100 ML VIAL ONE (10:27)
[2022-02-01] MEDS ORDERED: LIDOCAINE HCL 400MG/20ML VIAL ONE (10:27)
[2022-02-01] MEDS ORDERED: FENTANYL CITRATE PF 50 MCG/1 ML 2ML VIAL ONE (10:27)
[2022-02-01 11:05] VITALS: BP 130/71
[2022-02-01 15:05] VITALS: BP 139/76
[2022-02-01 19:00] VITALS: BP 142/77
[2022-02-01] MEDS: TRAZODONE HCL 50 MG TAB PO SCH (21:03)
[2022-02-02] VITALS: BP 113/59
[2022-02-02 04:00] VITALS: BP 140/82
[2022-02-02 05:10] LABS: BASOPHILS % (AUTO) 0.4 % (0.0-5.0); EOSINOPHILS % (AUTO) 1.6 % (0.0-8.0); HEMATOCRIT 38.7 % (36-48); LYMPHOCYTES % (AUTO) 6.8 % (21.0-51.0); MEAN CORPUSCULAR HGB CONC 31.5 g/dL (32.0-36.0); MONOCYTES % (AUTO) 13.7 % (3.0-13.0); NEUTROPHILS % (AUTO) 77.2 % (40.0-77.0); PLATELET COUNT (AUTO) 500 K/uL (130-400); RED BLOOD CELL COUNT(AUTO) 4.35 MIL/uL (4.00-5.50); RED CELL DISTRIBUTION WIDTH 15.1 % (11.0-15.5); WHITE BLOOD COUNT (AUTO) 7.5 K/uL (4.8-10.8)
[2022-02-02 05:24] LABS: ALBUMIN 2.1 g/dL (3.5-5.0); CREATININE 2.5 mg/dL (0.5-1.5); POTASSIUM 4.6 mmol/L (3.5-5.1); TOTAL PROTEIN, SERUM 6.9 g/dL (6.0-8.3)
[2022-02-02] MEDS: INSULIN HUMULIN R 100 UNIT/ML 3ML SQ SCH ×6 (06:26→20:47)
[2022-02-02] MEDS: INSULIN GLARGINE 100 UNITS/ML 10 ML VIAL SQ SCH (06:56)
[2022-02-02 08:00] VITALS: BP 147/86
[2022-02-02] MEDS: FERROUS SULFATE 325 MG TABLET.DR PO SCH (09:37)
[2022-02-02] MEDS: ATORVASTATIN 40 MG TABLET PO SCH (09:37)
[2022-02-02] MEDS: ENOXAPARIN SODIUM 30 MG/0.3 ML SQ SCH (09:37)
[2022-02-02] MEDS: PAROXETINE HCL 20 MG TABLET PO SCH (09:38)
[2022-02-02] MEDS: PANTOPRAZOLE 40 MG TAB DR PO SCH (09:38)
[2022-02-02] MEDS: TICAGRELOR 90 MG TABLET PO SCH ×2 (09:38→20:46)
[2022-02-02] MEDS: ASPIRIN 81 MG EC TAB PO SCH (09:38)
[2022-02-02] MEDS: ACETAMINOPHEN 325 MG TAB PO PRN (10:46)
[2022-02-02 12:39] VITALS: BP 148/83
[2022-02-02] MEDS ORDERED: TRAZ-253 PO (12:42)
[2022-02-02] MEDS ORDERED: PARO-66 PO (12:42)
[2022-02-02] MEDS ORDERED: RANO500T2 PO (12:42)
[2022-02-02 16:52] VITALS: BP 141/77
[2022-02-02] MEDS ORDERED: INSULIN HUMULIN R 100 UNIT/ML 3ML SQ SCH (17:00)
[2022-02-02 19:00] VITALS: BP 147/85
[2022-02-02] MEDS: TRAZODONE HCL 50 MG TAB PO SCH (20:46)
[2022-02-03] VITALS: BP 124/73
[2022-02-03] MEDS: ACETAMINOPHEN 325 MG TAB PO PRN (02:59)
[2022-02-03 04:00] VITALS: BP 114/67
[2022-02-03 05:36] LABS: CREATININE 2.3 mg/dL (0.5-1.5); POTASSIUM 4.7 mmol/L (3.5-5.1)
[2022-02-03] MEDS: INSULIN HUMULIN R 100 UNIT/ML 3ML SQ SCH ×4 (06:58→12:16)
[2022-02-03] MEDS ORDERED: INSULIN GLARGINE 100 UNITS/ML 10 ML VIAL SQ SCH (07:00)
[2022-02-03 08:00] VITALS: BP 157/87
[2022-02-03] MEDS: PANTOPRAZOLE 40 MG TAB DR PO SCH (08:58)
[2022-02-03] MEDS: ATORVASTATIN 40 MG TABLET PO SCH (08:58)
[2022-02-03] MEDS: ASPIRIN 81 MG EC TAB PO SCH (08:58)
[2022-02-03] MEDS: ENOXAPARIN SODIUM 30 MG/0.3 ML SQ SCH (08:59)
[2022-02-03] MEDS: FERROUS SULFATE 325 MG TABLET.DR PO SCH (08:59)
[2022-02-03] MEDS: TICAGRELOR 90 MG TABLET PO SCH (08:59)
[2022-02-03] MEDS: PAROXETINE HCL 20 MG TABLET PO SCH (08:59)
[2022-02-03] MEDS ORDERED: INSU100I35 SQ (11:05)
[2022-02-03 12:00] VITALS: BP 146/76
== END 2022-02-03 13:46 | disposition home or self-care (01) | DRG 637 ==
LOC: EDH 04:33 → EDHIP 06:33 → 3DH 09:39 → 2BH 01-17 06:54 → 2AH 01-18 19:09 → 3CH 01-30 18:49
PROVIDERS: ADMIT Hospitalist; ATTEND Hospitalist
DX: E11.649 Type 2 diabetes mellitus with hypoglycemia without coma (principal); E43 Unspecified severe protein-calorie malnutrition; I50.43 Acute on chronic combined systolic (congestive) and diastolic (congestive) heart failure; I13.0 Hypertensive heart and chronic kidney disease with heart failure and stage 1 through stage 4 chronic kidney disease, or unspecified chronic kidney disease; E87.1 Hypo-osmolality and hyponatremia; Z68.1 Body mass index [BMI] 19.9 or less, adult; I42.9 Cardiomyopathy, unspecified; N17.0 Acute kidney failure with tubular necrosis; E11.22 Type 2 diabetes mellitus with diabetic chronic kidney disease; Z20.822 Contact with and (suspected) exposure to COVID-19; I95.9 Hypotension, unspecified; E86.1 Hypovolemia; E78.00 Pure hypercholesterolemia, unspecified; L89.151 Pressure ulcer of sacral region, stage 1; D64.9 Anemia, unspecified; F32.A Depression, unspecified; T38.3X5A Adverse effect of insulin and oral hypoglycemic [antidiabetic] drugs, initial encounter; N18.32 Chronic kidney disease, stage 3b; Z90.49 Acquired absence of other specified parts of digestive tract; Z88.8 Allergy status to other drugs, medicaments and biological substances; Z79.899 Other long term (current) drug therapy; Z82.49 Family history of ischemic heart disease and other diseases of the circulatory system; Z95.5 Presence of coronary angioplasty implant and graft; Z85.038 Personal history of other malignant neoplasm of large intestine; E11.51 Type 2 diabetes mellitus with diabetic peripheral angiopathy without gangrene; Z83.3 Family history of diabetes mellitus; Z95.810 Presence of automatic (implantable) cardiac defibrillator; Z79.4 Long term (current) use of insulin; Z87.442 Personal history of urinary calculi; Y92.89 Other specified places as the place of occurrence of the external cause
CPT/HCPCS: 36415; 36600; 70450; 71045; 71270; 74176; 74240; 78264; 80048; 80053; 81001; 82040; 82435; 82746; 82803; 82947; 82948; 83036; 83605; 83735; 83880; 84100; 84132; 84295; 84443; 84484; 85018; 85025; 85027; 85378; 87040; 87088; 87635; 93005; 93970; 94640; 97039; A9541; G0378; J0692; J0780; J1170; J1644; J1650; J1815; J1940; J2060; J2250; J2405; J2543; J2930; J3010; J3490; J7030; J7040; J7042; J7070; Q0163; Q0167; Q9967

== ENCOUNTER 2022-02-09 00:12 | Emergency (ER) | payer BC ==
[~2022-02-09] VITALS: Ht 160 cm; Wt 46.3 kg
[~2022-02-09 00:12] MED LIST changes: -ACET-2079 PO; +FURO20TA6 PO; -FURO40TA7 PO; +INSU100I35 SQ; -LISI10TA24 PO; -OSEL75 PO; +PARO-66 PO; +RANO500T2 PO; -SITA1TAB6 PO; +TICA90TA PO; +TRAZ-253 PO
[2022-02-09 00:13] VITALS: BP 161/98
== END 2022-02-09 02:18 | disposition home or self-care (01) ==
LOC: EDH 00:12
DX: T73.0XXA Starvation, initial encounter (principal); Z59.00 Homelessness unspecified; I50.9 Heart failure, unspecified; Z79.899 Other long term (current) drug therapy; Z79.82 Long term (current) use of aspirin; Z88.8 Allergy status to other drugs, medicaments and biological substances; Z88.6 Allergy status to analgesic agent; X58.XXXA Exposure to other specified factors, initial encounter

== ENCOUNTER 2022-02-09 14:34 | Emergency (ER) | payer BC ==
[~2022-02-09] VITALS: Ht 157.5 cm; Wt 54.4 kg
[2022-02-09 14:37] VITALS: BP 137/78
== END 2022-02-09 15:38 | disposition left against medical advice (07) ==
LOC: EDH 14:34
DX: R52 Pain, unspecified (principal); Z53.21 Procedure and treatment not carried out due to patient leaving prior to being seen by health care provider

== ENCOUNTER 2022-05-12 21:28 | Inpatient (IN) | payer BC, OTHER ==
[~2022-05-12] VITALS: Ht 157.5 cm; Wt 61.2 kg
[~2022-05-12 21:28] MED LIST changes: +ATOR40TA69 PO; -ATOR80TA PO; +CARV12.511 PO; -CARV25TA77 PO; +CLOP75TA32 PO; +DAPA10TA PO; -FURO20TA6 PO; -INSU100I35 SQ; -PARO-66 PO; -TICA90TA PO; +TORS10TA18 PO; -TRAZ-253 PO
[2022-05-12 21:48] LABS: BASOPHILS % (AUTO) 0.9 % (0.0-5.0); EOSINOPHILS % (AUTO) 2.7 % (0.0-8.0); HEMATOCRIT 32.4 % (36-48); LYMPHOCYTES % (AUTO) 18.1 % (21.0-51.0); MEAN CORPUSCULAR HEMOGLOBIN 31.7 pg (27.0-33.0); MEAN CORPUSCULAR HGB CONC 32.1 g/dL (32.0-36.0); MEAN CORPUSCULAR VOLUME 98.8 fL (79-99); MONOCYTES % (AUTO) 7.8 % (3.0-13.0); NEUTROPHILS % (AUTO) 70.5 % (40.0-77.0); PLATELET COUNT (AUTO) 234 K/uL (130-400); RED BLOOD CELL COUNT(AUTO) 3.28 MIL/uL (4.00-5.50); RED CELL DISTRIBUTION WIDTH 15.9 % (11.0-15.5); WHITE BLOOD COUNT (AUTO) 4.4 K/uL (4.8-10.8)
[2022-05-12 22:02] LABS: B-TYPE NATRIURETIC PEPTIDE 2360 pg/mL (0-100)
[2022-05-12 22:08] LABS: CREATININE 1.5 mg/dL (0.5-1.5); POTASSIUM 5.9 mmol/L (3.5-5.1)
[2022-05-12 22:16] LABS: ALBUMIN 2.7 g/dL (3.5-5.0); TOTAL PROTEIN, SERUM 6.6 g/dL (6.0-8.3)
[2022-05-12] MEDS ORDERED: HYDROCODONE/ACETAMINOPHEN 5/325 MG TAB PO PRN (23:00)
[2022-05-12] MEDS ORDERED: NA ZIRCON CYCLOSIL(LOKELMA 10GM) PO ONE (23:00)
[2022-05-12] MEDS ORDERED: HYDROMORPHONE 1 MG INJ IV PRN (23:00)
[2022-05-12] MEDS ORDERED: ONDANSETRON 4MG INJ IV PRN (23:00)
[2022-05-12] MEDS ORDERED: NITROGLYCERIN 1GM OINT 1 INCH/1GM TD SCH (23:00)
[2022-05-12] MEDS ORDERED: ACETAMINOPHEN 325 MG TAB PO PRN (23:00)
[2022-05-12] MEDS: PHARMACY COMMUNICATION MISC SCH (23:45)
[2022-05-13] VITALS (8 sets, daily range): BP systolic 134–170; BP diastolic 78–112
[2022-05-13] MEDS ORDERED: SPIRONOLACTONE 25 MG TAB ONE (04:38)
[2022-05-13] MEDS ORDERED: LISINOPRIL 10 MG TABLET ONE (04:38)
[2022-05-13] MEDS: SPIRONOLACTONE 25 MG TAB PO SCH ×3 (04:43→20:04)
[2022-05-13] MEDS: LISINOPRIL 10 MG TABLET PO SCH ×2 (04:46→08:08)
[2022-05-13] MEDS: INSULIN HUMULIN R 100 UNIT/ML 3ML SQ SCH ×4 (06:32→20:05)
[2022-05-13 06:58] LABS: BASOPHILS % (AUTO) 0.7 % (0.0-5.0); EOSINOPHILS % (AUTO) 3.6 % (0.0-8.0); HEMATOCRIT 30.8 % (36-48); LYMPHOCYTES % (AUTO) 20.3 % (21.0-51.0); MEAN CORPUSCULAR HEMOGLOBIN 31.4 pg (27.0-33.0); MEAN CORPUSCULAR HGB CONC 31.8 g/dL (32.0-36.0); MEAN CORPUSCULAR VOLUME 98.7 fL (79-99); MONOCYTES % (AUTO) 8.8 % (3.0-13.0); NEUTROPHILS % (AUTO) 66.4 % (40.0-77.0); PLATELET COUNT (AUTO) 214 K/uL (130-400); RED BLOOD CELL COUNT(AUTO) 3.12 MIL/uL (4.00-5.50); RED CELL DISTRIBUTION WIDTH 15.5 % (11.0-15.5); WHITE BLOOD COUNT (AUTO) 4.2 K/uL (4.8-10.8)
[2022-05-13 07:05] LABS: HEMOGLOBIN A1C 5.9 % (4.0-6.0)
[2022-05-13 07:12] LABS: CREATININE 1.5 mg/dL (0.5-1.5); PHOSPHORUS 3.9 mg/dL (2.5-4.9); POTASSIUM 4.6 mmol/L (3.5-5.1)
[2022-05-13] MEDS: PHARMACY COMMUNICATION MISC SCH ×2 (07:45→15:45)
[2022-05-13] MEDS: ASPIRIN 81 MG EC TAB PO SCH (08:08)
[2022-05-13] MEDS: CLOPIDOGREL 75MG TAB PO SCH (08:08)
[2022-05-13] MEDS: CARVEDILOL 12.5 MG TABLET PO SCH ×2 (08:08→20:04)
[2022-05-13] MEDS: FUROSEMIDE 40MG VIAL IVP SCH ×2 (08:08→20:04)
[2022-05-13] MEDS: ***HM***(Dapagliflozin Propanediol (Farxiga) 10 MG) PO SCH (08:09)
[2022-05-13] MEDS: NITROGLYCERIN 1GM OINT 1 INCH/1GM TD SCH ×3 (08:09→23:40)
[2022-05-13] MEDS: FAMOTIDINE 20MG VIAL IV SCH (08:09)
[2022-05-13] MEDS: ENOXAPARIN SODIUM 40 MG/0.4 ML SYRINGE SQ SCH (08:09)
[2022-05-13] MEDS: PANTOPRAZOLE 40 MG TAB DR PO SCH (10:56)
[2022-05-13] MEDS: HYDRALAZINE 25MG TABLET PO SCH ×2 (13:08→20:05)
[2022-05-13] MEDS: ATORVASTATIN 40 MG TABLET PO SCH (20:04)
[2022-05-14] VITALS (7 sets, daily range): BP systolic 107–155; BP diastolic 44–93
[2022-05-14] MEDS: INSULIN HUMULIN R 100 UNIT/ML 3ML SQ SCH ×4 (06:22→20:24)
[2022-05-14 06:52] LABS: BASOPHILS % (AUTO) 1.1 % (0.0-5.0); EOSINOPHILS % (AUTO) 3.9 % (0.0-8.0); HEMATOCRIT 29.1 % (36-48); LYMPHOCYTES % (AUTO) 25.8 % (21.0-51.0); MEAN CORPUSCULAR HEMOGLOBIN 31.5 pg (27.0-33.0); MEAN CORPUSCULAR VOLUME 98.6 fL (79-99); MONOCYTES % (AUTO) 9.2 % (3.0-13.0); PLATELET COUNT (AUTO) 199 K/uL (130-400); RED BLOOD CELL COUNT(AUTO) 2.95 MIL/uL (4.00-5.50); RED CELL DISTRIBUTION WIDTH 15.3 % (11.0-15.5); WHITE BLOOD COUNT (AUTO) 2.8 K/uL (4.8-10.8)
[2022-05-14] MEDS: PANTOPRAZOLE 40 MG TAB DR PO SCH (07:04)
[2022-05-14 07:11] LABS: ALBUMIN 2.4 g/dL (3.5-5.0); CREATININE 1.6 mg/dL (0.5-1.5); MAGNESIUM 1.9 mg/dL (1.80-2.40); POTASSIUM 4.4 mmol/L (3.5-5.1); TOTAL PROTEIN, SERUM 5.6 g/dL (6.0-8.3)
[2022-05-14 07:46] LABS: MAN.DIFF COMMENT-IMPRESSION MANUAL DIFFERENTIAL
[2022-05-14 07:47] LABS: PLATELET MORPHOLOGY COMMENT ADEQUATE
[2022-05-14 07:55] LABS: EOSINOPHILS % (MANUAL) 4 % (1-6); LYMPHOCYTES % (MANUAL) 21 % (22-44); MONOCYTES % (MANUAL) 4 % (2-9); SEGMENTED NEUTROPHILS % 71 % (40-70)
[2022-05-14 08:00] LABS: BASOPHILS % (MANUAL) 0 % (0-2)
[2022-05-14] MEDS: ***HM***(Dapagliflozin Propanediol (Farxiga) 10 MG) PO SCH (09:00)
[2022-05-14] MEDS: ASPIRIN 81 MG EC TAB PO SCH (10:00)
[2022-05-14] MEDS: CARVEDILOL 12.5 MG TABLET PO SCH ×2 (10:00→20:25)
[2022-05-14] MEDS: LISINOPRIL 10 MG TABLET PO SCH (10:01)
[2022-05-14] MEDS: CLOPIDOGREL 75MG TAB PO SCH (10:01)
[2022-05-14] MEDS: SPIRONOLACTONE 25 MG TAB PO SCH ×2 (10:01→20:24)
[2022-05-14] MEDS: FERROUS SULFATE 325 MG TABLET.DR PO SCH (10:01)
[2022-05-14] MEDS: ENOXAPARIN SODIUM 40 MG/0.4 ML SYRINGE SQ SCH (10:02)
[2022-05-14] MEDS: FAMOTIDINE 20MG VIAL IV SCH (10:02)
[2022-05-14] MEDS: FUROSEMIDE 40MG VIAL IVP SCH ×2 (10:02→20:24)
[2022-05-14] MEDS: ATORVASTATIN 40 MG TABLET PO SCH (20:24)
[2022-05-15 04:30] VITALS: BP 125/83
[2022-05-15] MEDS: INSULIN HUMULIN R 100 UNIT/ML 3ML SQ SCH ×4 (05:00→21:00)
[2022-05-15] MEDS: PANTOPRAZOLE 40 MG TAB DR PO SCH (05:35)
[2022-05-15 08:00] VITALS: BP 161/85
[2022-05-15] MEDS: ASPIRIN 81 MG EC TAB PO SCH (08:53)
[2022-05-15] MEDS: ENOXAPARIN SODIUM 40 MG/0.4 ML SYRINGE SQ SCH (08:53)
[2022-05-15] MEDS: FUROSEMIDE 40MG VIAL IVP SCH ×2 (08:54→21:21)
[2022-05-15] MEDS: CLOPIDOGREL 75MG TAB PO SCH (08:54)
[2022-05-15] MEDS: FAMOTIDINE 20MG VIAL IV SCH (08:55)
[2022-05-15] MEDS: SPIRONOLACTONE 25 MG TAB PO SCH ×2 (08:55→21:22)
[2022-05-15] MEDS: LISINOPRIL 10 MG TABLET PO SCH (08:55)
[2022-05-15] MEDS: CARVEDILOL 12.5 MG TABLET PO SCH ×2 (08:55→21:22)
[2022-05-15] MEDS: ***HM***(Dapagliflozin Propanediol (Farxiga) 10 MG) PO SCH (08:56)
[2022-05-15 12:00] VITALS: BP 162/93
[2022-05-15 14:55] LABS: BASOPHILS % (AUTO) 0.8 % (0.0-5.0); EOSINOPHILS % (AUTO) 2.8 % (0.0-8.0); HEMATOCRIT 33.7 % (36-48); MEAN CORPUSCULAR HEMOGLOBIN 31.1 pg (27.0-33.0); MEAN CORPUSCULAR HGB CONC 31.5 g/dL (32.0-36.0); MEAN CORPUSCULAR VOLUME 98.8 fL (79-99); MONOCYTES % (AUTO) 9.2 % (3.0-13.0); NEUTROPHILS % (AUTO) 66.9 % (40.0-77.0); PLATELET COUNT (AUTO) 236 K/uL (130-400); RED BLOOD CELL COUNT(AUTO) 3.41 MIL/uL (4.00-5.50); RED CELL DISTRIBUTION WIDTH 15.4 % (11.0-15.5); WHITE BLOOD COUNT (AUTO) 3.6 K/uL (4.8-10.8)
[2022-05-15 15:08] LABS: ALBUMIN 2.7 g/dL (3.5-5.0); CREATININE 1.8 mg/dL (0.5-1.5); POTASSIUM 4.8 mmol/L (3.5-5.1); TOTAL PROTEIN, SERUM 6.3 g/dL (6.0-8.3)
[2022-05-15 16:00] VITALS: BP 140/87
[2022-05-15 20:00] VITALS: BP 138/83
[2022-05-15] MEDS: ATORVASTATIN 40 MG TABLET PO SCH (21:22)
[2022-05-16] VITALS: BP 156/84
[2022-05-16 03:33] VITALS: BP 114/61
[2022-05-16 04:35] LABS: HEMATOCRIT 31.9 % (36-48); MEAN CORPUSCULAR HEMOGLOBIN 31.1 pg (27.0-33.0); MEAN CORPUSCULAR HGB CONC 31.7 g/dL (32.0-36.0); MEAN CORPUSCULAR VOLUME 98.2 fL (79-99); RED BLOOD CELL COUNT(AUTO) 3.25 MIL/uL (4.00-5.50); RED CELL DISTRIBUTION WIDTH 15.2 % (11.0-15.5); WHITE BLOOD COUNT (AUTO) 3.7 K/uL (4.8-10.8)
[2022-05-16 04:39] LABS: CREATININE 1.8 mg/dL (0.5-1.5); POTASSIUM 4.7 mmol/L (3.5-5.1)
[2022-05-16 07:30] VITALS: BP 126/66
[2022-05-16] MEDS: INSULIN HUMULIN R 100 UNIT/ML 3ML SQ SCH (07:30)
[2022-05-16] MEDS: ***HM***(Dapagliflozin Propanediol (Farxiga) 10 MG) PO SCH (09:00)
[2022-05-16] MEDS: CARVEDILOL 12.5 MG TABLET PO SCH (10:24)
[2022-05-16] MEDS: SPIRONOLACTONE 25 MG TAB PO SCH (10:24)
[2022-05-16] MEDS: ENOXAPARIN SODIUM 40 MG/0.4 ML SYRINGE SQ SCH (10:24)
[2022-05-16] MEDS: CLOPIDOGREL 75MG TAB PO SCH (10:25)
[2022-05-16] MEDS: LISINOPRIL 10 MG TABLET PO SCH (10:26)
[2022-05-16] MEDS: ASPIRIN 81 MG EC TAB PO SCH (10:26)
[2022-05-16] MEDS: FAMOTIDINE 20MG VIAL IV SCH (10:26)
[2022-05-16] MEDS: PANTOPRAZOLE 40 MG TAB DR PO SCH (10:30)
[2022-05-16] MEDS: FERROUS SULFATE 325 MG TABLET.DR PO SCH (10:30)
[2022-05-16 11:30] VITALS: BP 170/92
[2022-05-16] MEDS ORDERED: SPIR25TA6 PO (11:46)
[2022-05-16] MEDS ORDERED: AEC81 PO (11:46)
[2022-05-16] MEDS ORDERED: FERR-72 PO (11:46)
[2022-05-16] MEDS ORDERED: NITR0.4T50 SL (11:46)
[2022-05-16] MEDS ORDERED: RANO500T6 PO (11:46)
[2022-05-16] MEDS ORDERED: ATOR40TA71 PO (11:46)
[2022-05-16] MEDS ORDERED: FURO20TA4 PO (11:46)
[2022-05-16] MEDS ORDERED: CLOP75TA32 PO (11:46)
[2022-05-16] MEDS ORDERED: DAPA10TA PO (11:46)
[2022-05-16] MEDS ORDERED: CARV12.511 PO (11:46)
[2022-05-16] MEDS ORDERED: FUROSEMIDE 40 MG TABLET PO SCH (17:00)
== END 2022-05-16 14:45 | disposition home or self-care (01) | DRG 291 ==
LOC: EDH 21:28 → EDHIP 21:29 → 4AH 05-13 03:13
PROVIDERS: ADMIT Internal Medicine; ATTEND Internal Medicine
DX: I11.0 Hypertensive heart disease with heart failure (principal); I50.33 Acute on chronic diastolic (congestive) heart failure; I42.0 Dilated cardiomyopathy; E87.5 Hyperkalemia; E11.65 Type 2 diabetes mellitus with hyperglycemia; E78.00 Pure hypercholesterolemia, unspecified; I25.10 Atherosclerotic heart disease of native coronary artery without angina pectoris; Z53.20 Procedure and treatment not carried out because of patient's decision for unspecified reasons; Z95.5 Presence of coronary angioplasty implant and graft; Z91.199 Patient's noncompliance with other medical treatment and regimen due to unspecified reason; Z91.14 Patient's other noncompliance with medication regimen; Z85.038 Personal history of other malignant neoplasm of large intestine; Z82.49 Family history of ischemic heart disease and other diseases of the circulatory system
CPT/HCPCS: 36415; 71045; 80048; 80053; 82948; 83036; 83605; 83735; 83880; 84100; 84484; 85025; 85027; 93005; G0378; J1650; J1815; J1940; J3490

== ENCOUNTER 2022-06-18 12:21 | Emergency (ER) | payer OTHER ==
[~2022-06-18] VITALS: Ht 157.5 cm; Wt 56.7 kg
[~2022-06-18 12:21] MED LIST changes: -ATOR40TA69 PO; +ATOR40TA71 PO; +FERR-72 PO; -FERR325T29 PO; +FURO20TA4 PO; -NITR0.4T SL; +NITR0.4T50 SL; -RANO500T2 PO; +RANO500T6 PO; +SPIR25TA6 PO; -TORS10TA18 PO
[2022-06-18 12:25] VITALS: BP 154/93
[2022-06-18 13:09] LABS: BASOPHILS % (AUTO) 1.1 % (0.0-5.0); EOSINOPHILS % (AUTO) 1.3 % (0.0-8.0); HEMATOCRIT 37.8 % (36-48); LYMPHOCYTES % (AUTO) 13.3 % (21.0-51.0); MEAN CORPUSCULAR HEMOGLOBIN 30.2 pg (27.0-33.0); MEAN CORPUSCULAR HGB CONC 31.7 g/dL (32.0-36.0); MONOCYTES % (AUTO) 4.8 % (3.0-13.0); NEUTROPHILS % (AUTO) 79.2 % (40.0-77.0); PLATELET COUNT (AUTO) 238 K/uL (130-400); RED BLOOD CELL COUNT(AUTO) 3.98 MIL/uL (4.00-5.50); RED CELL DISTRIBUTION WIDTH 14.1 % (11.0-15.5); WHITE BLOOD COUNT (AUTO) 3.8 K/uL (4.8-10.8)
[2022-06-18 13:20] LABS: ALBUMIN 2.8 g/dL (3.5-5.0); CREATININE 1.6 mg/dL (0.5-1.5); POTASSIUM 4.3 mmol/L (3.5-5.1); TOTAL PROTEIN, SERUM 6.6 g/dL (6.0-8.3)
[2022-06-18] MEDS ORDERED: FUROSEMIDE 40MG VIAL IV ONE (15:30)
[2022-06-18] MEDS ORDERED: MAG/ALUM/SIMETH 30 ML UDCUP PO ONE (15:30)
[2022-06-18] MEDS ORDERED: LIDOCAINE HCL 2% VISCOUS 15 ML UDCUP PO ONE (15:30)
[2022-06-18] MEDS ORDERED: MAG-55 PO (17:58)
[2022-06-18] MEDS ORDERED: FURO40TA7 PO (17:58)
== END 2022-06-18 18:18 | disposition home or self-care (01) ==
LOC: EDH 12:21
DX: K29.70 Gastritis, unspecified, without bleeding (principal); K21.9 Gastro-esophageal reflux disease without esophagitis; R60.0 Localized edema; I11.0 Hypertensive heart disease with heart failure; I50.9 Heart failure, unspecified; E11.9 Type 2 diabetes mellitus without complications; E78.00 Pure hypercholesterolemia, unspecified; Z98.890 Other specified postprocedural states; Z79.899 Other long term (current) drug therapy; Z79.82 Long term (current) use of aspirin; Z88.6 Allergy status to analgesic agent; Z88.8 Allergy status to other drugs, medicaments and biological substances
CPT/HCPCS: 99285; 96374; 71045; 84484 ×2; 80053; 83880; 83690; 85025; 36415; 93005; J1940; 81001

== ENCOUNTER 2022-08-18 07:25 | Emergency (ER) | payer BC ==
[~2022-08-18] VITALS: Ht 157.5 cm; Wt 56.7 kg
[~2022-08-18 07:25] MED LIST changes: +AMLO-257 PO; -CARV12.511 PO; +CARV3.12 PO; +CLOP-31 PO; -CLOP75TA32 PO; -DAPA10TA PO; -FERR-72 PO; +FERS325 PO; -FURO20TA4 PO; -SPIR25TA6 PO; +TORS20TA4 PO
[2022-08-18 08:09] LABS: BASOPHILS % (AUTO) 0.6 % (0.0-5.0); EOSINOPHILS % (AUTO) 2.6 % (0.0-8.0); HEMATOCRIT 37.5 % (36-48); LYMPHOCYTES % (AUTO) 17.4 % (21.0-51.0); MEAN CORPUSCULAR HEMOGLOBIN 29.4 pg (27.0-33.0); MEAN CORPUSCULAR HGB CONC 31.2 g/dL (32.0-36.0); MEAN CORPUSCULAR VOLUME 94.2 fL (79-99); NEUTROPHILS % (AUTO) 71.2 % (40.0-77.0); PLATELET COUNT (AUTO) 286 K/uL (130-400); RED BLOOD CELL COUNT(AUTO) 3.98 MIL/uL (4.00-5.50); RED CELL DISTRIBUTION WIDTH 15.8 % (11.0-15.5); WHITE BLOOD COUNT (AUTO) 4.7 K/uL (4.8-10.8)
[2022-08-18 08:22] LABS: CREATININE 1.9 mg/dL (0.5-1.5); POTASSIUM 5.5 mmol/L (3.5-5.1)
[2022-08-18 08:29] LABS: ALBUMIN 2.8 g/dL (3.5-5.0); TOTAL PROTEIN, SERUM 6.9 g/dL (6.0-8.3)
[2022-08-18] MEDS ORDERED: FUROSEMIDE 40MG VIAL IV SCH (08:30)
[2022-08-18] MEDS ORDERED: FUROSEMIDE 40MG VIAL ONE (08:32)
[2022-08-18 08:54] LABS: B-TYPE NATRIURETIC PEPTIDE 1970 pg/mL (0-100)
[2022-08-18] MEDS ORDERED: ZARO5 PO (10:07)
[2022-08-18] MEDS ORDERED: KAYEXALATE 15GM/60ML PO SCH (10:30)
[2022-08-18] MEDS ORDERED: IPRATROPIUM/ALBUTEROL SULFATE 3 ML SOLUTION IH SCH (10:30)
[2022-08-18] MEDS ORDERED: IPRATROPIUM 0.5 MG/2.5 ML INH IH ONE (10:36)
[2022-08-18] MEDS ORDERED: ALBUTEROL 0.083% 2.5 MG/3 ML INH IH ONE (10:36)
[2022-08-18 11:33] VITALS: BP 151/79
== END 2022-08-18 12:00 | disposition home or self-care (01) ==
LOC: EDH 07:25
DX: I11.0 Hypertensive heart disease with heart failure (principal); I50.9 Heart failure, unspecified; E11.9 Type 2 diabetes mellitus without complications; E78.00 Pure hypercholesterolemia, unspecified; Z79.82 Long term (current) use of aspirin; Z79.899 Other long term (current) drug therapy; Z86.73 Personal history of transient ischemic attack (TIA), and cerebral infarction without residual deficits; Z88.5 Allergy status to narcotic agent; Z88.8 Allergy status to other drugs, medicaments and biological substances; Z95.5 Presence of coronary angioplasty implant and graft
CPT/HCPCS: 99284; 93970; 96374; 71045; 84484; 80053; 83880; 85025; 36415; 93005; 94640; J1940 ×2

== ENCOUNTER 2023-01-05 21:32 | Emergency (ER) | payer BC, MEDICAID ==
[~2023-01-05] VITALS: Ht 157.5 cm; Wt 56.7 kg
[2023-01-05 22:22] LABS: HEMATOCRIT 35.1 % (36-48); MEAN CORPUSCULAR HEMOGLOBIN 30.8 pg (27.0-33.0); MEAN CORPUSCULAR HGB CONC 31.9 g/dL (32.0-36.0); MEAN CORPUSCULAR VOLUME 96.4 fL (79-99); RED BLOOD CELL COUNT(AUTO) 3.64 MIL/uL (4.00-5.50); RED CELL DISTRIBUTION WIDTH 14.7 % (11.0-15.5); WHITE BLOOD COUNT (AUTO) 4.3 K/uL (4.8-10.8)
[2023-01-05 22:31] LABS: CREATININE 1.9 mg/dL (0.5-1.5); POTASSIUM 5.5 mmol/L (3.5-5.1)
[2023-01-05 22:41] LABS: ALBUMIN 2.6 g/dL (3.5-5.0); TOTAL PROTEIN, SERUM 6.3 g/dL (6.0-8.3)
[2023-01-05] MEDS ORDERED: FUROSEMIDE 100MG VIAL IVP ONE (23:30)
[2023-01-05] MEDS ORDERED: FUROSEMIDE 20MG VIAL ONE (23:42)
[2023-01-06 02:59] VITALS: BP 145/87
[2023-01-06] MEDS ORDERED: KAYEXALATE 15GM/60ML PO ONE (03:00)
== END 2023-01-06 03:16 | disposition home or self-care (01) ==
LOC: EDH 21:32
DX: I11.0 Hypertensive heart disease with heart failure (principal); I50.9 Heart failure, unspecified; E11.9 Type 2 diabetes mellitus without complications; Z79.82 Long term (current) use of aspirin; Z79.84 Long term (current) use of oral hypoglycemic drugs; Z79.899 Other long term (current) drug therapy; Z88.5 Allergy status to narcotic agent; Z90.49 Acquired absence of other specified parts of digestive tract; Z95.5 Presence of coronary angioplasty implant and graft; Z95.810 Presence of automatic (implantable) cardiac defibrillator; Z20.822 Contact with and (suspected) exposure to COVID-19
CPT/HCPCS: 99285; 96374; 71045; 87635; 83735; 84484; 85025; 87804 ×2; 93005; 84132; 85027; 80053 ×2; 36415 ×3; C9803; J1940 ×2

== ENCOUNTER → 2023-01-05 | Outpatient (CLI) | payer MEDICAID ==
[~2023-01-05] MED LIST changes: -AEC81 PO; -AMLO-257 PO; +ASPI-1005 PO; +ATOR-2 PO; -ATOR40TA71 PO; +CARV25TA PO; -CARV3.12 PO; -CLOP-31 PO; +EMPA10TA PO; +FURO40TA7 PO; +HUM100IN SQ; +HYDR-4153 PO; +ISOS20TA9 PO; -TORS20TA4 PO
[2023-01-05 15:16] LABS: BASOPHILS % (AUTO) 0.9 % (0.0-5.0); EOSINOPHILS % (AUTO) 1.6 % (0.0-8.0); HEMATOCRIT 39.4 % (36-48); LYMPHOCYTES % (AUTO) 13.6 % (21.0-51.0); MEAN CORPUSCULAR HEMOGLOBIN 30.3 pg (27.0-33.0); MEAN CORPUSCULAR HGB CONC 31.2 g/dL (32.0-36.0); MONOCYTES % (AUTO) 7.9 % (3.0-13.0); PLATELET COUNT (AUTO) 272 K/uL (130-400); RED BLOOD CELL COUNT(AUTO) 4.06 MIL/uL (4.00-5.50); RED CELL DISTRIBUTION WIDTH 14.7 % (11.0-15.5); WHITE BLOOD COUNT (AUTO) 4.4 K/uL (4.8-10.8)
[2023-01-05 15:30] LABS: ALBUMIN 2.9 g/dL (3.5-5.0); CREATININE 1.7 mg/dL (0.5-1.5); MAGNESIUM 1.8 mg/dL (1.80-2.40); POTASSIUM 5.1 mmol/L (3.5-5.1); TOTAL PROTEIN, SERUM 7.1 g/dL (6.0-8.3)
== END | disposition home or self-care (01) ==
LOC: LAB 13:51
PROVIDERS: ATTEND Student in an Organized Health Care Education/Training Program
DX: I25.10 Atherosclerotic heart disease of native coronary artery without angina pectoris (principal); I25.5 Ischemic cardiomyopathy; E78.5 Hyperlipidemia, unspecified
CPT/HCPCS: 36415; 80053; 83735; 85025

== ENCOUNTER → 2023-01-10 | Outpatient (CLI) | payer MEDICAID ==
[2023-01-10 16:46] LABS: ALBUMIN 2.7 g/dL (3.5-5.0); CREATININE 1.9 mg/dL (0.5-1.5); POTASSIUM 4.5 mmol/L (3.5-5.1); TOTAL PROTEIN, SERUM 6.8 g/dL (6.0-8.3)
== END | disposition home or self-care (01) ==
LOC: LAB 15:19
PROVIDERS: ATTEND Student in an Organized Health Care Education/Training Program
DX: I25.5 Ischemic cardiomyopathy (principal); E78.5 Hyperlipidemia, unspecified; I10 Essential (primary) hypertension
CPT/HCPCS: 36415; 80053; 80061

== ENCOUNTER → 2023-02-13 | Outpatient (CLI) | payer MEDICAID ==
[2023-02-13 12:30] LABS: CREATININE 2.2 mg/dL (0.5-1.5); POTASSIUM 5.2 mmol/L (3.5-5.1)
== END | disposition home or self-care (01) ==
LOC: LAB 10:51
PROVIDERS: ATTEND Student in an Organized Health Care Education/Training Program
DX: I25.10 Atherosclerotic heart disease of native coronary artery without angina pectoris (principal); I10 Essential (primary) hypertension
CPT/HCPCS: 36415; 80048